=== PATIENT | female | born 1955 | race Caucasian/White ===

== ENCOUNTER 2016-09-02 08:08 | Outpatient (CLI) | payer OTHER | END 2016-09-02 08:09 | disposition home or self-care (01) | DX: Z12.31 Encounter for screening mammogram for malignant neoplasm of breast (principal) ==

== ENCOUNTER 2020-03-06 13:19 | Outpatient (CLI) | payer BC, MEDICARE, OTHER | END 2020-03-06 13:20 | disposition home or self-care (01) | LOC: NS 13:19 | PROVIDERS: ATTEND Physician Assistant Medical | DX: Z71.3 Dietary counseling and surveillance (principal); R73.9 Hyperglycemia, unspecified | CPT/HCPCS: 97802 ==

== ENCOUNTER 2020-03-20 12:53 | Outpatient (CLI) | payer BC, MEDICARE, OTHER | END 2020-03-20 12:54 | disposition home or self-care (01) | LOC: NS 12:53 | PROVIDERS: ATTEND Physician Assistant Medical | DX: Z71.3 Dietary counseling and surveillance (principal); R73.9 Hyperglycemia, unspecified | CPT/HCPCS: 97803 ==

== ENCOUNTER 2020-04-17 12:52 | Outpatient (CLI) | payer BC, MEDICARE, OTHER | END 2020-04-17 12:53 | disposition home or self-care (01) | LOC: NS 12:52 | PROVIDERS: ATTEND Physician Assistant Medical | DX: Z71.3 Dietary counseling and surveillance (principal); R73.9 Hyperglycemia, unspecified | CPT/HCPCS: 97803 ==

== ENCOUNTER 2020-05-26 09:12 | Outpatient (CLI) | payer BC, MEDICARE, OTHER ==
[2020-05-26 09:43] LABS: CALCIUM 9.2 mg/dL (8.5-10.3); CREATININE 0.7 mg/dL (0.4-1.0)
== END 2020-05-26 09:13 | disposition home or self-care (01) ==
LOC: LAB 09:12
PROVIDERS: ATTEND Physician Assistant Medical
DX: R73.9 Hyperglycemia, unspecified (principal)
CPT/HCPCS: 36415; 80048; 83036

== ENCOUNTER 2021-01-02 08:00 | Outpatient (CLI) | payer BC, MEDICARE, OTHER ==
[2021-01-02 12:01] LABS: ALBUMIN 4.2 g/dL (3.2-5.5); ALBUMIN/GLOBULIN RATIO 1.1 (1.0-2.2); ALKALINE PHOSPHATASE 92 IU/L (42-121); ALT ALANINE AMINOTRANSFERASE 23 IU/L (10-60); AST ASPARTATE AMINOTRANSFERASE 24 IU/L (10-42); BILIRUBIN,TOTAL 0.6 mg/dL (0.2-1.0); BUN - BLOOD UREA NITROGEN 18 mg/dL (6-20); CALCIUM 9.1 mg/dL (8.5-10.3); CARBON DIOXIDE - CO2 24 mmol/L (21-32); CHLORIDE 106 mmol/L (101-111); CHOL/HDL RATIO 3.6 (<4.4); CHOLESTEROL 215 mg/dL; CREATININE 0.8 mg/dL (0.4-1.0); GFR - MDRD 72 (>89); GLUCOSE 107 mg/dL (70-100); HDL CHOLESTEROL 59 mg/dL; LDL CHOLESTEROL,CALCULATED 140 mg/dL; LDL/HDL RATIO 2.4 (<4.4); POTASSIUM 4.7 mmol/L (3.5-5.0); SODIUM 138 mmol/L (135-145); TOTAL PROTEIN 8.1 g/dL (6.7-8.2); TRIGLYCERIDES 79 mg/dL; VLDL CHOLESTEROL 16 mg/dL
[2021-01-02 12:29] LABS: ESTIMATED AVERAGE GLUCOSE 117 mg/dL (70-100); HEMOGLOBIN A1c% 5.7 % (4.27-6.07)
== END 2021-01-02 23:59 | disposition home or self-care (01) ==
LOC: LAB.WCP 08:00
PROVIDERS: ATTEND Physician Assistant Medical
DX: R73.9 Hyperglycemia, unspecified (principal)
CPT/HCPCS: 36415; 80053; 80061; 83036; 83721

== ENCOUNTER 2021-04-05 09:12 | Outpatient (CLI) | payer BC, MEDICARE, OTHER ==
--- NOTE | 2021-04-05 11:25 | Ultrasound Report ---
PROCEDURE: Abdomen Limited INDICATIONS: RUQ ABDOMINAL PAIN TECHNIQUE: Real-time focused scanning was performed of the abdomen, with image documentation. COMPARISON: None. FINDINGS: The liver is increased in echogenicity. Anteriorly within the right hepatic lobe, there is a lobulate d hypoechoic heterogeneous mass with indistinct margins measuring approximately 11.8 x 6.4 x 10.1 cm. There is internal vascularity on color Doppler interrogation. Gallbladder demonstrates no stones, wall thickening, or pericholecystic fluid. No intra or extra hepatic biliary ductal dilatation. The common bile duct measures up to approximatel y 0.3 cm. There is an oval hypoechoic mass in the region of the pancreatic head and uncinate process. This sidra ures approximately 3.3 x 2.2 x 4.4 cm. There is internal vascularity on color Doppler interrogation. IMPRESSION: 1. Hyperechoic mass demonstrated within the region of the pancreatic head and uncinate process. Findi ng is suspicious for a pancreatic malignancy. No associated biliary ductal dilatation. 2. Lobulated large hypoechoic ill-defined mass involving the anterior right hepatic lobe. The finding is highly suspicious for malignancy, such as metastatic disease. Further evaluation of the hepatic and pancreatic masses may be obtained with a hepatic protocol CT or MRI. 3. No evidence of cholelithiasis or cholecystitis. Reviewed by: Lonnie De Leon MD on 04/05/2021 11:24 AM PDT Approved by: Lonnie De Leon MD on 04/05/2021 11:24 AM PDT Station ID: [id number]
== END 2021-04-05 09:13 | disposition home or self-care (01) ==
LOC: DI 09:12
PROVIDERS: ATTEND Physician Assistant Medical
DX: R10.11 Right upper quadrant pain (principal); R16.0 Hepatomegaly, not elsewhere classified; K86.89 Other specified diseases of pancreas

== ENCOUNTER 2021-04-10 11:10 | Outpatient (CLI) | payer BC, MEDICARE, OTHER ==
--- NOTE | 2021-04-13 10:19 | Mammography Report ---
BILATERAL DIGITAL SCREENING MAMMOGRAM 3D/2D: 04/10/2021 CLINICAL: Routine screening. Comparison is made to exams dated: 09/02/2016 mammogram, 05/06/2015 mammogram, and 10/22/2011 mammogra m - [facility]. There are scattered fibroglandular elements in both breasts. No significant masses, calcifications, or other findings are seen in either breast. There has been no significant interval change. IMPRESSION: NEGATIVE There is no mammographic evidence of malignancy. A 1 year screening mammogram is recommended. This exam was interpreted at Station ID: [id number]. NOTE: For mammograms, a report in lay terms will be sent to the patient. Approximately 15% of breast malignancies will not be visualized mammographically. In the management of a palpable breast mass, a negative mammogram must not discourage biopsy of a clinically suspicious lesion. Electronically Signed By: Maxx Gerardo M.D. aty/penrad:04/10/2021 16:54:14 ACR BI-RADS Category 1: Negative 3341F PARENCHYMAL PATTERN: (A) - The breast(s) demonstrate(s) scattered fibroglandular densities. BI-RADS CATEGORY: (1) - 1 RECOMMENDATION: (ANNUAL) - Recommend routine annual screening mammography. [id number] 1 year screening LATERALITY: (B)
== END 2021-04-10 11:11 | disposition home or self-care (01) ==
LOC: DI 11:10
DX: Z12.31 Encounter for screening mammogram for malignant neoplasm of breast (principal)

== ENCOUNTER 2021-04-17 07:00 | Outpatient (CLI) | payer BC, MEDICARE, OTHER ==
[2021-04-17] MEDS ORDERED: IOVERSOL 320 100 ML VIAL IVP ONE ×2 (07:32→08:53)
[2021-04-17 07:35] LABS: CREATININE 0.8 mg/dL (0.4-1.0)
--- NOTE | 2021-04-17 09:38 | CT Report ---
PROCEDURE: CHEST W INDICATIONS: MASS OF PANCREAS CONTRAST: IV CONTRAST: Optiray 320 ml: 100 PO CONTRAST: *NO PO CONTRAST TECHNIQUE: After the administration of intravenous contrast, 1 mm axial images were acquired from the pulmonary apices through the posterior costophrenic angles. Axial 5 mm soft tissue kernel reconstructions were performed as well as 8 mm axial MIP and coronal and sagittal 5 mm reformations. For radiation dose reduction, the following was used: automated exposure control, adjustment of mA and/or kV according to patient size. COMPARISON: CT abdomen and pelvis from the same date. FINDINGS: Image quality: Excellent. Lungs and pleura: No acute air space opacities. No pleural effusions or pneumothorax. Central and peripheral airways are patent and normal in caliber. Mediastinum: Heart size is normal. No pericardial effusion. No mediastinal or hilar adenopathy by size criteria. Thoracic aorta and central pulmonary arteries are normal in size. Esophagus is ruyd l in caliber. No hiatal hernia. Bones and chest wall: No suspicious bony lesions. No vertebral body compression fractures. No axil joe or supraclavicular adenopathy by size criteria. Thyroid is unremarkable as visualized.. Abdomen: Extensive liver metastatic disease. Multiple peritoneal implants adjacent to the liver. Cent rally necrotic uncinate process region pancreatic mass or pancreatic enlarged lymph nodes adjacent to the uncinate process, a portacaval lymph node. Implant immediately adjacent to the neck of the gallb ladder. IMPRESSION: 1. No evidence of metastatic disease in the chest. 2. Extensive metastatic disease in the liver. 3. Numerous peritoneal implants. 4. There is either and uncinate process mass or a large necrotic lymph node adjacent to the uncinate process of the pancreas, a portacaval lymph node. Comment: Please refer to a separate report for findings in the abdomen and pelvis. A CT of the abdome n and pelvis performed on the same date. CLINICAL RECOMMENDATION STATEMENTS: In patients <35 years with an ITN detected on CT, MRI, or extrathyroidal ultrasound, the Committee re commends further evaluation with dedicated thyroid ultrasound if the nodule is "e1 cm and has no susp icious imaging features, and if the patient has normal life expectancy. In patients "e35 years with an ITN detected on CT, MRI, or extrathyroidal ultrasound, the Committee r ecommends further evaluation with dedicated thyroid ultrasound if the nodule is "e1.5 cm and has no s uspicious imaging features, and if the patient has normal life expectancy. (ACR, 2014) Reviewed by: Harish Joe MD on 04/17/2021 9:37 AM PDT Approved by: Harish Joe MD on 04/17/2021 9:37 AM PDT Station ID: [id number]
--- NOTE | 2021-04-17 10:15 | CT Report ---
PROCEDURE: ABDOMEN/PELVIS W/WO INDICATIONS: MASS OF PANCREAS CONTRAST: IV CONTRAST: Optiray 320 ml: 100 PO CONTRAST: *NO PO CONTRAST TECHNIQUE: After the administration of oral contrast, 5 mm thick sections acquired from the diaphrag ms to the iliac crests. After the administration of intravenous contrast, 5 mm thick sections acquir ed from the diaphragms to the symphysis. 5 mm thick coronal and sagittal reformats were acquired. F or radiation dose reduction, the following was used: automated exposure control, adjustment of mA an d/or kV according to patient size. COMPARISON: None. FINDINGS: Image quality: Excellent. ABDOMEN: Lung bases: Lung bases are clear. Heart size is normal. Solid organs: Liver: Extensive metastatic disease. Index lesion as follows: Predominantly segment 5, right lobe, confluent infiltrative low-density mass measuring approximately 7.1 x 5.5 x 6.8 cm. Reference images 39/6 and 33/3. Spleen is unremarkable. Gallbladder appears to be unremarkable. There appeared to be malignant implan ts immediately adjacent to the gallbladder. Biliary system is non-dilated. Pancreas: There is either and uncinate process pancreas mass or an enlarged necrotic portacaval lymph node immediately adjacent to the uncinate process. On image 43/3 it measures 4.6 x 4.1 cm. No adrenal nodules. Both kidneys are normal in size. No hydronephrosis or nephrolithiasis. Bowel and peritoneum: Stomach, small and large bowel loops are normal in caliber and wall thickness. No free fluid or air. Numerous peritoneal implants are present. Many of these are close to the viola er. These are hypervascular metastatic lesions. 2 of the implants are close to the gallbladder. A rep resentative image demonstrating peritoneal implants shows 5/implants adjacent to the right lobe of th e liver on image 49/3. Nodes and vessels: No retroperitoneal or mesenteric adenopathy by size criter ia. Aorta and inferior vena are normal in caliber. Miscellaneous: No ventral hernias. PELVIS: Genitourinary: Bladder wall thickness is normal. Miscellaneous: No inguinal hernias or adenopathy. Uterus is surgically absent. Bones: No suspicious bony lesions. No vertebral body compression fractures. IMPRESSION: 1. There is extensive hepatic metastatic disease. 2. There is either an intrinsic uncinate process pancreatic mass or a necrotic portacaval lymph node adjacent to the uncinate process of the pancreas. 3. There are numerous small peritoneal implants. Comment: It should be relatively easy to perform an image guided biopsy of the liver for tissue diagn osis. Reviewed by: Harish Joe MD on 04/17/2021 10:13 AM PDT Approved by: Harish Joe MD on 04/17/2021 10:13 AM PDT Station ID: [id number]
== END 2021-04-17 07:01 | disposition home or self-care (01) ==
LOC: LAB 07:00
PROVIDERS: ATTEND Physician Assistant Medical
DX: K86.89 Other specified diseases of pancreas (principal); C78.7 Secondary malignant neoplasm of liver and intrahepatic bile duct; R93.5 Abnormal findings on diagnostic imaging of other abdominal regions, including retroperitoneum
CPT/HCPCS: 36415; 71260; 74178; 82565; Q9967

== ENCOUNTER 2021-04-24 07:46 | Outpatient (CLI) | payer BC, MEDICARE, OTHER ==
[2021-04-24] MEDS ORDERED: BUFFERED LIDOCAINE 10 ML SYRINGE ONE (08:30)
[2021-04-24 08:34] LABS: BASOPHILS # (AUTO) 0.1 10^3/uL (0.0-0.1); BASOPHILS % (AUTO) 0.8 %; EOSINOPHILS # (AUTO) 0.2 10^3/uL (0.0-0.7); EOSINOPHILS % (AUTO) 2.4 %; HCT - HEMATOCRIT 40.8 % (37.0-47.0); HGB - HEMOGLOBIN 13.4 g/dL (12.0-16.0); LYMPHOCYTES # (AUTO) 2.7 10^3/uL (1.5-3.5); LYMPHOCYTES % (AUTO) 35.9 %; MEAN CORPUSCULAR HEMOGLOBIN 31.2 pg (27.0-31.0); MEAN CORPUSCULAR HGB CONC 32.8 g/dL (32.0-36.0); MEAN CORPUSCULAR VOLUME 95.1 fL (81.0-99.0); MEAN PLATELET VOLUME 9.8 fL (7.9-10.8); MONOCYTES # (AUTO) 0.5 10^3/uL (0.0-1.0); NEUTROPHILS # (AUTO) 4.1 10^3/uL (1.5-6.6); NEUTROPHILS % (AUTO) 54.8 %; PLT - PLATELET COUNT 320 10^3/uL (130-450); RED BLOOD COUNT 4.29 10^6/uL (4.20-5.40); RED CELL DISTRIBUTION WIDTH 12.4 % (12.0-15.0); WHITE BLOOD COUNT 7.5 x10^3/uL (4.8-10.8)
[2021-04-24 08:40] LABS: INR 1.1 (0.8-1.2); PT - PROTHROMBIN TIME 12.2 secs (9.9-12.6)
[2021-04-24] MEDS: LACTATED RINGERS 1,000 ML IV ONE ×2 (08:43→10:03)
[2021-04-24 08:47] LABS: PARTIAL THROMBOPLASTIN TIME 28.9 secs (24.9-33.3)
[2021-04-24] MEDS ORDERED: fentaNYL 100 MCG/2 ML VIAL ONE (09:05)
[2021-04-24] MEDS ORDERED: MIDAZOLAM 2 MG/2 ML VIAL ONE (09:06)
--- NOTE | 2021-04-24 10:33 | CT Report ---
PROCEDURE: LIVER BX PERC Sedation analgesia for 30 minutes. INDICATIONS: MASS OF PANCREAS TECHNIQUE: The indications, alternatives, benefits, risks, and possible complications of the procedure were comm unicated to the patient. Informed written consent from the patient was obtained and placed in the art. Continuous EKG and hemodynamic monitoring was started by trained personnel. For radiation dose reduction, the following was used: automated exposure control, adjustment of mA and/or kV according to patient size. The patient was brought to the CT suite and reading assistant spiral CT imaging was performed with localization g rid. The appropriate site for percutaneous access to the biopsy target was marked, was prepped and d raped sterilely, and was infused with local anaesthesia. Under CT guidance, a core biopsy trocar and needle set was advanced to the biopsy target, and specimen(s) were obtained. The trocar and needle were then removed, and the patient was sent for post-procedure monitoring. COMPARISON: None. FINDINGS: Biopsy site: Anterior segment right hepatic lobe lesion. Needle: 18 gauge biopsy needle with introducer trocar. Number of passes: 3 Medications: 1% lidocaine for local anaesthesia. IV Fentanyl and Versed for conscious sedation for 30 minutes (see nursing record). Complications: None. IMPRESSION: Successful CT-guided biopsy of liver lesion. Reviewed by: Joe Caal MD on 04/24/2021 10:32 AM PDT Approved by: Joe Caal MD on 04/24/2021 10:32 AM PDT Station ID: [id number]
[2021-04-24 14:03] VITALS: BP 145/75
== END 2021-04-24 07:47 | disposition home or self-care (01) ==
LOC: DI 07:46
PROVIDERS: ATTEND Physician Assistant Medical
DX: K86.89 Other specified diseases of pancreas (principal); C78.7 Secondary malignant neoplasm of liver and intrahepatic bile duct
CPT/HCPCS: 36415; 47000; 77012; 85025; 85610; 85730; J7120

== ENCOUNTER 2021-05-11 07:53 | Day surgery (SDC) | payer BC, MEDICARE, OTHER ==
[~2021-05-11 07:53] MED LIST: MIDAZOLAM 2 MG/2 ML VIAL ONE; PROPOFOL 200 MG/20 ML VIAL IVP ONE; fentaNYL 100 MCG/2 ML VIAL ONE
[2021-05-11] MEDS ORDERED: CEFAZOLIN SODIUM IN 0.9 % NACL 2 GM/100 ML BAG IV ONE (08:27)
[2021-05-11] MEDS ORDERED: ePHEDrine 50 MG/ML VIAL IVP ONE (08:33)
[2021-05-11] MEDS ORDERED: GLYCOPYRROLATE 1 MG/5 ML VIAL ONE (08:35)
--- NOTE | 2021-05-11 08:58 | ANESTHESIA ---
Pre-Anesthesia VS, & Labs - Diagnosis pancreatic cancer - Procedure Portacath placement Vital Signs: Temp Pulse Resp BP Pulse Ox 36.2 C L 55 L 18 184/98 H 95 05/11/21 08:10 05/11/21 08:10 05/11/21 08:10 05/11/21 08:10 05/11/21 08:10 Height: 5 ft 5 in Weight (kg): 93.9 kg Body Mass Index: 34.4 BMI Classification: Obese - NPO >8 hours - Is Patient ?: No - Lab Results Lab results reviewed: Yes Home Medications and Allergies Aspirin Chewable [St Heath Aspirin] 81 mg PO DAILY 02/20/20 Cholecalciferol (Vitamin D3) [Vitamin D3] 6,000 unit PO DAILY 02/20/20 Losartan [Cozaar] 50 mg PO BID 02/20/20 Metoprolol Tartrate [Lopressor] 100 mg PO BID 02/20/20 Red Yeast Rice 1,200 mg PO DAILY 02/20/20 Allergies/Adverse Reactions: Allergies Allergy/AdvReac Type Severity Reaction Status Date / Time No Known Drug Allergies Allergy Verified 04/23/21 11:27 Anes History & Medical History - Anesthetic History Anesthesia Complications: reports: No previous complications Family history of Anesthesia Complications: Denies Family history of Malignant Hyperthermia: Denies - Medical History Cardiovascular: reports: Hypertension Smoking Status: Never smoker Other Past Medical History: pancreatic cancer - Surgical History Gynecologic: reports: Hysterectomy Exam General: Alert, Oriented x3, Cooperative, No acute distress Dental: WNL Mouth Openin Fingerbreadth Neck Mobility: Normal Mallampati classification: II Respiratory: Lungs clear, Normal breath sounds, No respiratory distress, No accessory muscle use Cardiovascular: Regular rate, Normal S1, Normal S2, No murmurs Plan Anesthesia Type: MAC Consent for Procedure(s) Verified and Reviewed: Yes Code Status: Attempt Resuscitation ASA classification: 3-Severe systemic disease Is this case an emergency?: No
[2021-05-11] MEDS ORDERED: METOCLOPRAMIDE 10 MG/2 ML VIAL IVP PRN (09:01)
[2021-05-11] MEDS ORDERED: NALOXONE 0.4 MG/ML VIAL IVP PRN (09:01)
[2021-05-11] MEDS ORDERED: ATROPINE ABBOJECT 1 MG/10 ML SYRINGE IVP PRN (09:01)
[2021-05-11] MEDS ORDERED: ePHEDrine 50 MG/ML VIAL IVP PRN (09:01)
[2021-05-11] MEDS ORDERED: ONDANSETRON 4 MG/2 ML VIAL IVP PRN (09:01)
[2021-05-11] MEDS ORDERED: MORPHINE 2 MG/ML CARPUJECT IVP PRN (09:01)
[2021-05-11] MEDS ORDERED: fentaNYL 100 MCG/2 ML VIAL IVP PRN (09:01)
[2021-05-11] MEDS ORDERED: HYDROmorphone 0.5 MG/0.5 ML SYRINGE IVP PRN (09:01)
[2021-05-11] MEDS ORDERED: LACTATED RINGERS 1,000 ML IV SCH (10:00)
[2021-05-11] MEDS ORDERED: LIDOCAINE 2%-EPI 1:100000 20 ML MDV ONE (10:05)
[2021-05-11] MEDS ORDERED: BUPIVACAINE 0.25% PF 30 ML VIAL ONE (10:05)
[2021-05-11] MEDS ORDERED: PROPOFOL 200 MG/20 ML VIAL IVP ONE (10:19)
[2021-05-11] MEDS ORDERED: fentaNYL 100 MCG/2 ML VIAL ONE (10:20)
[2021-05-11] MEDS ORDERED: MIDAZOLAM 2 MG/2 ML VIAL ONE (10:20)
[2021-05-11] MEDS ORDERED: SEVOFLURANE 250 ML LIQUID INH ONE (10:23)
[2021-05-11] MEDS ORDERED: LIDOCAINE 1%-EPI 1:100000 20 ML MDV SUBQ ONE ×2 (10:56)
[2021-05-11] MEDS ORDERED: BUPIVACAINE 0.5% PF 30 ML VIAL SUBQ ONE ×3 (10:57)
--- NOTE | 2021-05-11 11:19 | OPERATIVE REPORT ---
Operative Report - General Procedure Date: 05/11/21 Planned Procedure: Left subclavian Power Port Pre-Op Diagnosis: Metastatic Pancreatic Cancer Procedure Performed: Left subclavian Power Port Post Op Diagnosis: Metastatic Pancreatic Cancer - Procedure Note Primary Surgeon: Randolph Anesthesia Provider: CATRACHITA Thapa Pathology: None Estimated Blood Loss (mL): 2 Indications: Facilitation of Chemotherapy Findings: Port in good position Complications: None apparent - Other Other Information/Narrative: After obtaining informed consent, the patient is brought to the operating room and placed in supine position on the operating table. Following successful induction of sedation with monitored anesthesia care and appropriate padding of all bony prominences, the left chest and neck were prepped and draped in the standard surgical fashion. A timeout was held per scope protocol. All elements of the surgical safety checklist were followed before, during, and after the procedure. Following infiltration with local anesthetic to create a field block, the left subclavian vein was accessed in the deltopectoral groove. The J-wire was gently placed into the vein. Fluoroscopy was used to confirm the position of the wire and in the subclavian vein. We anesthetized the existing healed scar in the area around it for placement of the port itself. An incision was created here and carried down through the skin and subcutaneous tissue. A pocket was created with blunt dissection. The port tubing was attached to the tunneling device and passed from the access site of the vein into the pocket. It was trimmed to an appropriate length and the port attached. The port was sewn into place in the pocket. The dilator and introducer were then passed over the J-wire that was in the subclavian vein. The J-wire and dilator were removed leaving only the introducer. The tubing was then passed through the introducer and the introducer cracked and removed per ratoprinter's directions. The port was then checked for function and flushed and [place] easily. Additional local anesthetic was applied to the chest wall. The port pocket was closed with interrupted Vicryl sutures and Monocryl stitches were placed in both skin incision sites. All sponge, needle, and instrument counts were correct at the conclusion of the case. Chest x-ray in the postanesthesia care unit revealed the port in good position in the superior vena cava without evidence of pneumothorax.
[2021-05-11] MEDS ORDERED: LACTATED RINGERS 1,000 ML IV ONE (11:24)
--- NOTE | 2021-05-11 11:51 | XRAY Report ---
PROCEDURE: Chest for Line Placement INDICATIONS: Left subclavian port TECHNIQUE: One view of the chest was acquired. COMPARISON: None. FINDINGS: SUPPORT DEVICES: Interval placement of a CT injectable left subclavian nas catheter with tip projec ting over the cavoatrial region. LUNGS/PLEURA: No focal consolidation, pleural effusion or space-occupying pneumothorax. MEDIASTINUM: The cardiomediastinal silhouette is within normal limits. BONES/SOFT TISSUES: No acute abnormality. IMPRESSION: 1.No acute cardiopulmonary abnormality. Reviewed by: Jorgito Hernandez MD on 05/11/2021 11:50 AM PDT Approved by: Jorgito Hernandez MD on 05/11/2021 11:50 AM PDT Station ID: [id number]
[2021-05-11 12:03] VITALS: BP 138/73
--- NOTE | 2021-05-11 15:04 | ANESTHESIA POST OP EVALUATION ---
Anesthesia Post Eval - Post Anesthesia Eval Vitals: Last Vital Signs Temp 36.4 C L 05/11/21 11:56 Pulse 53 L 05/11/21 11:56 Resp 12 05/11/21 11:56 BP 138/73 H 05/11/21 11:56 Pulse Ox 98 05/11/21 11:56 CV Function Including HR & BP: Stable Pain Control: Satisfactory Nausea & Vomiting: Negative Mental Status: Baseline Respiratory Status: Airway Patent Hydration Status: Satisfactory Anesthesia Complications: None
== END 2021-05-11 07:54 | disposition home or self-care (01) ==
LOC: SDS 07:53
PROVIDERS: ATTEND Surgery
DX: C25.9 Malignant neoplasm of pancreas, unspecified (principal); C78.7 Secondary malignant neoplasm of liver and intrahepatic bile duct; C78.6 Secondary malignant neoplasm of retroperitoneum and peritoneum; E66.9 Obesity, unspecified; Z68.34 Body mass index [BMI] 34.0-34.9, adult; Z20.822 Contact with and (suspected) exposure to COVID-19
CPT/HCPCS: 36561; 71045; 87635; C1788; J0690; J3490; J7120

== ENCOUNTER 2021-06-25 16:54 | Outpatient (CLI) | payer MEDICARE, OTHER ==
--- NOTE | 2021-06-25 18:53 | Ultrasound Report ---
PROCEDURE: Duplex Ext Veins Left INDICATIONS: LEFT LEG PAIN TECHNIQUE: Real-time imaging, as well as color and pulse Doppler interrogation, were performed of the lower extr emity deep veins from the inguinal ligament to the popliteal fossa. COMPARISON: None. FINDINGS: Nonocclusive thrombus in the common femoral vein, upper and mid profunda vein, and popliteal veins. No thrombus identified in the superficial femoral vein. No thrombus is identified in the calf veins. There is extensive occlusive thrombus in the greater saphenous vein from the groin to the mid calf. IMPRESSION: Positive for DVT. Nonocclusive thrombus in the CFV, profunda, and popliteal veins. Occlusive superficial thrombus in the GSV. Reviewed by: Remy Morin MD on 06/25/2021 6:52 PM PST Approved by: Remy Morin MD on 06/25/2021 6:52 PM [facility] Station ID: [id number]
== END 2021-06-25 16:55 | disposition home or self-care (01) ==
LOC: DI 16:54
PROVIDERS: ATTEND Internal Medicine Hematology & Oncology
DX: M79.605 Pain in left leg (principal); I82.412 Acute embolism and thrombosis of left femoral vein; I82.432 Acute embolism and thrombosis of left popliteal vein; I82.492 Acute embolism and thrombosis of other specified deep vein of left lower extremity; I82.812 Embolism and thrombosis of superficial veins of left lower extremity; C25.9 Malignant neoplasm of pancreas, unspecified; C78.7 Secondary malignant neoplasm of liver and intrahepatic bile duct; C78.6 Secondary malignant neoplasm of retroperitoneum and peritoneum

== ENCOUNTER 2021-06-25 18:35 | Emergency (ER) | payer MEDICARE, OTHER ==
[2021-06-25 18:46] VITALS: BP 161/88
[2021-06-25] MEDS ORDERED: APIXABAN 5 MG TABLET PO STA (20:29)
--- NOTE | 2021-06-25 20:31 | ED Physician Documentation ---
History of Present Illness - Stated complaint Stated Complaint: LEFT LEG PX - Chief complaint Chief Complaint: Ext Problem - History obtained from History obtained from: Patient - History of Present Illness Timing: How many weeks ago (2) Pain level max: 2 Pain level now: 1 - Additonal information Additional information: Patient is a 66-year-old female with a history of pancreatic cancer who had an outpatient ultrasound today for left lower extremity pain and swelling x2 weeks. Found to have a DVT and sent here to be placed on anticoagulants. No chest pain. No shortness of breath. Review of Systems Constitutional: denies: Fever, Chills Nose: denies: Rhinorrhea / runny nose, Congestion GI: denies: Vomiting Skin: denies: Rash Musculoskeletal: denies: Neck pain, Back pain Neurologic: denies: Headache PD PAST MEDICAL HISTORY - Past Medical History Past Medical History: Yes Cardiovascular: Hypertension Respiratory: None Neuro: None Endocrine/Autoimmune: None GI: Other REGISTERED ART THERAPIST: None : None HEENT: None Psych: None Musculoskeletal: None Derm: None Other Past Medical History: Pancreatic ca with liver mets - Past Surgical History Past Surgical History: Yes /REGISTERED ART THERAPIST: Hysterectomy - Present Medications Home Medications: Ambulatory Orders Medication Instructions Recorded Confirmed Aspirin Chewable [St Heath 81 mg PO DAILY 02/20/20 05/18/21 Aspirin] Cholecalciferol (Vitamin D3) 6,000 unit PO DAILY 02/20/20 05/18/21 [Vitamin D3] Losartan [Cozaar] 50 mg PO BID 02/20/20 05/18/21 Metoprolol Tartrate [Lopressor] 100 mg PO BID 02/20/20 05/18/21 Red Yeast Rice 1,200 mg PO DAILY 02/20/20 05/18/21 Lidocaine/Prilocain 2.5% Cream 1 each TP BID PRN #1 tu 05/11/21 05/18/21 [Emla 2.5% Cream] oxyCODONE [Roxicodone] 5 mg PO Q4-6H PRN #20 tablet 05/11/21 05/18/21 OLANZapine [Zyprexa] 5 mg PO UD #16 tablet 05/18/21 Ondansetron HCl [Zofran] 4 mg PO Q6HR PRN #30 tab 05/18/21 Apixaban [Eliquis] 5 mg PO BID #74 tablet 06/25/21 - Allergies Allergies/Adverse Reactions: Allergies Allergy/AdvReac Type Severity Reaction Status Date / Time No Known Drug Allergies Allergy Verified 04/23/21 11:27 - Social History Does the pt smoke?: No Smoking Status: Never smoker Does the pt drink ETOH?: No Does the pt have substance abuse?: No PD ED PE NORMAL - Vitals Vital signs reviewed: Yes - General General: Alert and oriented X 3, No acute distress - HEENT HEENT: Moist mucous membranes - Neck Neck: Supple, no meningeal sign - Cardiac Cardiac: RRR - Respiratory Respiratory: No respiratory distress, Clear bilaterally - Abdomen Abdomen: Soft, Non tender, Non distended - Derm Derm: Warm and dry - Extremities Extremities: Other (mild swelling LLE, no calf tenderness. ) - Neuro Neuro: Alert and oriented X 3 Results - Vitals Vitals: Vital Signs - 24 hr 06/25/21 06/25/21 18:40 20:36 Temperature 36.5 C Heart Rate 74 Respiratory 18 Rate Blood Pressure 161/88 H O2 Saturation 96 Oxygen O2 Source Room air PD MEDICAL DECISION MAKING - ED course Complexity details: considered differential, d/w patient ED course: Reviewed the patient's ultrasound that was positive for DVT. Discussed risks and benefits of anticoagulation. She has no risk factors for bleeding. Denies any current GI bleeding. No history of recent surgery. No history of intracranial hemorrhage. No history of recent stroke. Counseled regarding the need to be seen emergently if trauma occurs to the abdomen or head. Patient has elected to go with Eliquis. She does not want to do warfarin and Lovenox, I think this is reasonable. We will start her on the Eliquis and have her follow-up with her doctor. Patient counseled regarding signs and symptoms for which I believe and urgent re-evaluation would be necessary. Patient with good understanding of and agreement to plan and is comfortable going home at this time This document was made in part using voice recognition software. While efforts are made to proofread this document, sound alike and grammatical errors may occur. Departure - Departure Disposition: 01 Home, Self Care Clinical Impression: Deep vein thrombosis Qualifiers: DVT location: lower extremity Affected thrombotic vein of extremity: unspecified vein of extremity Chronicity: acute Laterality: left Qualified Code(s): I82.402 - Acute embolism and thrombosis of unspecified deep veins of left lower extremity Condition: Good Instructions: ED DVT Follow-Up: Amelie Akers PA-C [Primary Care Provider] - Within 1 week Prescriptions: Apixaban [Eliquis] 5 mg PO BID #74 tablet Comments: Prescription was sent to [facility] in [place]. Please follow-up with your doctor for further care. Return if you worsen. Return especially if you notice any dark stools, blood in your stools. If you have trauma especially to your head area, you need to be evaluated immediately. Discharge Date/Time: 06/25/21 20:49
== END 2021-06-25 20:49 | disposition home or self-care (01) ==
LOC: ED 18:35
DX: I82.402 Acute embolism and thrombosis of unspecified deep veins of left lower extremity (principal); I10 Essential (primary) hypertension; M79.605 Pain in left leg; I82.412 Acute embolism and thrombosis of left femoral vein; I82.432 Acute embolism and thrombosis of left popliteal vein; I82.492 Acute embolism and thrombosis of other specified deep vein of left lower extremity; I82.812 Embolism and thrombosis of superficial veins of left lower extremity; C25.9 Malignant neoplasm of pancreas, unspecified; C78.7 Secondary malignant neoplasm of liver and intrahepatic bile duct; C78.6 Secondary malignant neoplasm of retroperitoneum and peritoneum
CPT/HCPCS: 36415; 93971; 99282; 99284; A9270

== ENCOUNTER 2021-09-10 13:30 | Outpatient (CLI) | payer MEDICARE, OTHER ==
--- NOTE | 2021-09-10 18:22 | CONSULTATION NOTE ---
Palliative Care Consultation - Referral Referring Provider: Dr. Inga Adame Time of Visit: 4568-9969 Referral setting: Home Referral Reason: Pancreatic Cancer/ACP - Information Sources Records reviewed: Previous records reviewed History/Review of Systems obtained from: Patient, Family (spouse, Ted) Exam limitations: No limitations - History of Present Illness Brief History of Present Illness: This is a verna 66-year-old female who was seen and evaluated in her home for initial palliative care consultation due to metastatic pancreatic adenocarcinoma with liver mets with her spouse, Ted present Provider wore N95 mask. Patient relays on her history that in July 2020 she developed a pain to her right upper quadrant that lasted several days and that then went away and she avoided fried chicken. The pain returned in February 2021. She went and was seen by her primary care provider and an ultrasound was obtained that demonstrated some thickening and a CT scan was then ordered of the abdomen and pelvis that demonstrated a "right hepatic lobe segment 5 infiltrative mass measuring 7.1 x 5.5 x 6.8 cm. From there the patient felt like things happened very quickly she then had a biopsy obtained confirming metastatic pancreatic adenocarcinoma in April 2021. She began mFOLFOX6 on 05/19/2021. Overall, the patient perceives that she has handled chemotherapy very well. There are times where she will have fatigue but she is able to keep moving. She feels that she has slowed down but she still able to do tasks and things that she enjoys. She does have some neuropathy with her hands that tingle when she touches cold objects with her fingertips. Therefore, she avoids cold items or has gloves in place do not change anything directly. She will have some of the same sensation to her feet that comes and goes. She also reports of fatigue with the last cycle of her chemotherapy but otherwise feels that she gets rest. She does report an intermittent right upper quadrant pain that will last a minute or so and then keily. She has not needed to take any [id number] pain medication nor does she perceive that she needs anything stronger than [id number] pain medication at this time. She will wake up frequently during the night but this has been ongoing for years. She denies any increased anxiety. Since initiating chemotherapy she does find all foods take taste to salty. She has had a gradual weight loss since her diagnosis. Patient is seen well groomed in her living room with no evidence of acute distress. 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 Support System: Patient and spouse have been for 47 years. They have 3 daughters. 2 daughters live in [place] and 1 daughter lives in [place] with her family. The patient and her spouse relocated to [facility] in August 1988. Spouse, Ted is retired from the [employer]. Both patient and spouse have retired. 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 The patient is an avid bad credit collector of many things and has her collections on display; angels, miniature shoes, beanie babies, books, classic Barbies, blue birds, intricate baskets. These items bring the patient much fransisco. Family History - Family History Family History: Mother: , Father: Alive and Well Family History Comment/Other: Mother at age 48 in a diabetic coma. Father is alive at age 91 and resides in [place]. Medications/Allergies - Medications Home Medications: Ambulatory Orders Medication Instructions Recorded Confirmed Cholecalciferol (Vitamin D3) 6,000 unit PO DAILY 02/20/20 09/01/21 [Vitamin D3] Losartan [Cozaar] 50 mg PO BID 02/20/20 09/01/21 Metoprolol Tartrate [Lopressor] 100 mg PO BID 02/20/20 09/01/21 Red Yeast Rice 600 mg PO BID 02/20/20 09/01/21 Lidocaine/Prilocain 2.5% Cream 1 each TP BID PRN #1 tu 05/11/21 09/01/21 [Emla 2.5% Cream] oxyCODONE [Roxicodone] 5 mg PO Q4-6H PRN #20 tablet 05/11/21 09/01/21 OLANZapine [Zyprexa] 5 mg PO UD #16 tablet 05/18/21 09/01/21 ondansetron HCL [Zofran] 4 mg PO Q6HR PRN #30 tab 05/18/21 09/01/21 Apixaban [Eliquis] 5 mg PO BID #74 tablet 06/25/21 09/01/21 Aspirin [Vazalore] 1 tab PO DAILY 09/14/21 09/14/21 B Complex 1 tab PO DAILY 09/14/21 Biotin 1,000 mcg PO BID 09/14/21 09/14/21 Calcium Carbonate 1 tab PO DAILY 09/14/21 09/14/21 Lysine [l-Lysine] 500 mg .3X PER WEEK 09/14/21 09/14/21 Magnesium 1 tab PO DAILY 09/14/21 09/14/21 Multivitamin 2 tab PO DAILY 09/14/21 09/14/21 Pancreatic Enzymes 2 units PO .WITH MEALS 09/14/21 Potassium 99mg 1 tab PO DAILY 09/14/21 Vitamin B12 2,500 mcg PO DAILY 09/14/21 Vitamin C 282 1 tab PO TID 09/14/21 - Allergies Allergies/Adverse Reactions: Allergies Allergy/AdvReac Type Severity Reaction Status Date / Time No Known Drug Allergies Allergy Verified 04/23/21 11:27 Review of Systems - Constitutional Constitutional: reports: Fatigue (after last cycle of chemotherapy), Weight loss (22lb weight loss). denies: Fever - Eyes Eyes: reports: Corrective lenses. denies: Irritation - Ears, Nose & Throat Ears, Nose & Throat: denies: Hearing loss, Hearing aids - Cardiovascular Cardiovascular: denies: Chest pain, Edema - Respiratory Respiratory: denies: Cough - Gastrointestinal Gastrointestinal: reports: Abdominal pain (intermittent RUQ, see HPI), Constipation (controlled with Benefiber (brand only)), Other (Fair appetite). denies: Diarrhea, Vomiting - Musculoskeletal Musculoskeletal: denies: Assistive devices, Transfer issues - Neurological Neurological: denies: Headache - Psychiatric Psychiatric: denies: Depression - Endocrine Endocrine: denies: Diabetes type 2 - All Other Systems All Other Systems: reports: Reviewed and negative Physical Exam - Vital Signs Temperature: 36.6 C Pulse Rate: 57 O2 Saturation: 97 (on RA) Blood Pressure: 134/79 - Physical Exam General Appearance: positive: No acute distress, Alert Eyes Bilateral: positive: Normal inspection, Other (+corrective lenses) ENT: positive: No signs of dehydration Neck: positive: Trachea midline Cardiovascular: positive: Regular rate & rhythm Respiratory: positive: No respiratory distress, Breath sounds nml Abdomen: positive: Non-tender, Soft, Nml bowel sounds. negative: Guarding Skin: positive: No symptoms Extremities: positive: Full ROM, Other (steady gait without an assistive device) Neurologic/Psychiatric: positive: Oriented x3, Mood/affect nml. negative: Weakness Palliative Care - POLST Patient has POLST: No Pain: No pain (intermittent RUQ, no pain presently) Tiredness/Fatigue: Mild (1-3) Drowsiness/Sedation: Mild (1-3) Nausea: Mild (1-3) Anorexia: Mild (1-3) Dyspnea: None Feelings of wellbeing/Perceived Quality of Life: Excellent Sleep: Variable sleep pattern (see HPI) Constipation: Managed (with Benefiber) Performance Status: Ambulatory without assist assistive device. No history of falls. Able to perform all IADLs and ADLs. Her only symptom burden that she has appreciated is that she has to slow down. - Palliative Care Discussion: Overall, she has minimal symptom burden and since the time of her cancer diagnosis it has been around when. She has the support of a local group of friends that she sees regularly. She also finds that her simi is centering and grounding for her. Her spouse expresses that he wishes to provide as much support as possible. He relays that he "did everything wrong" in regards to his health and wellbeing and yet here his spouse has a diagnosis of pancreatic cancer. The patient remains quite close to her daughters and has support from them as well. 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 Palliative care will continue to provide support for care coordination, anticipatory guidance and advance care planning. Recommendations/Counseling Done: 1. 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 P atient avoids cold contact. No need for introduction of gabapentin at her pre- Gage given minimal symptom burden. Continue to monitor. 2. Constipation. Patient responds well to brand only Benefiber. And encourage oral hydration and small frequent meals. 3. Simi. Patient has a strong underlying simi that provides her support. Introduced the role of palliative care qa tech is this is something she would find beneficial to request in the future. 4. Metastatic pancreatic cancer. Followed by oncology. Diagnosed April 2021. Continues with mFOLFOX6. 5.Advance care planning. Patient with metastatic disease. To continue to build rapport and tease out goals of care moving forward. Support to both patient and spouse. Supportive and empathetic listening provided today. Total time spent 65 with greater than 50% of time spent in counseling family and patient regarding palliative philosophy as well as care coordination, review of pain and symptom management and anticipatory guidance. Disclaimer: The chart note was formulated using voice recognition technology and unfortunately sound alike errors may occur.
== END 2021-09-10 13:31 | disposition home or self-care (01) ==
LOC: PC 13:30
PROVIDERS: ATTEND Nurse Practitioner Family
DX: Z51.5 Encounter for palliative care (principal); R53.83 Other fatigue; G62.0 Drug-induced polyneuropathy; T45.1X5A Adverse effect of antineoplastic and immunosuppressive drugs, initial encounter; R10.11 Right upper quadrant pain; K59.00 Constipation, unspecified; R63.4 Abnormal weight loss; C78.7 Secondary malignant neoplasm of liver and intrahepatic bile duct; C25.9 Malignant neoplasm of pancreas, unspecified
CPT/HCPCS: 99344

== ENCOUNTER 2021-11-17 08:52 | Outpatient (CLI) | payer MEDICARE, OTHER ==
--- NOTE | 2021-11-17 12:32 | CONSULTATION NOTE ---
Palliative Care Follow Up - Referral Referring Provider: Dr. Inga Adame Time of Visit: [id number] Referral setting: [facility] Referral Reason: Pancreatic Ca/Neuropathy - Information Sources Records reviewed: Previous records reviewed History/Review of Systems obtained from: Patient, Family (spouse, Ted) Exam limitations: No limitations - History of Present Illness Update Brief HPI Update: This is a verna 66-year-old female who was seen in follow-up today at [facility] due to metastatic pancreatic adenocarcinoma with liver mets And neuropathy due to chemotherapy with her spouse, Ted present. Patient developed right upper quadrant pain that lasted several days in July 2020 that then went away and then returned in February 2021. She had a CT scan and ultrasound that was obtained demonstrating a "right hepatic lobe segment 5 infiltrative mass measuring 7.1 x 5.5-6.8 cm." From there things progressed with her having a biopsy obtained confirming metastatic pancreatic adenocarcinoma in April 2021. She began mFOLFOX 6 on 05/19/2021. She last had a restaging CT of abdomen and pelvis on 10/20 that demonstrated stable disease in her liver, pancreas and peritoneum. This was something that she was pleased to hear however, was hoping to be notified of reduction in disease free of chemotherapy. She received one dose of pegfilgrastim injection And reports the day after she "could not leave her couch." In the timeframe after this injection she lost approximately 8 pounds. This is not something that she wishes to move forward with in the future after weighing benefits versus burdens related to her quality of life. She is beginning to feel improved with her energy level over the last week since this injection. She is now started implementing Ensure at least once daily and will dilute it with some low-fat milk. She continues to consume meals but does not find this overly pleasurable due to loss of taste but recognizes the importance and then will move forward with this. She is taking up taking a nap in the afternoon and this allows her to have better energy in the later afternoon and evening hours and is giving herself some tutu regarding this. She reports some dullness to her fingertips that sometimes can be difficult when she is crocheting. She also have a tingling sensation from her mid foot down to her toes. She does not ambulate in the home barefoot. Overall reporting mild discomfort related to neuropathy. Past Medical History: Past medical history of hypertension, pancreatic cancer, Hysterectomy, left lower extremity DVT on Eliquis since 06/2021. Social History - Living Situation Living arrangement: At home Living Situation: With spouse/s.o. Support System: Patient and spouse have been for 47 years. They have 3 daughters. 2 daughters live in [place] and 1 daughter lives in [place] with her family. The patient and spouse relocated to [facility] in August 1988. Spouse, Ted is retired from the [employer]. Both patient and spouse have retired. 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 The patient is an avid ore crushing dust collector of many things and her collections are on display in the home angels, miniature shoes, beanie babies, books, classic Barbies, blue birds, and intricate baskets that bring her fransisco. She also enjoys crocheting and her daughter stay in constant contact. She has 1 daughter who is a dispatcher who comes to visit once a week. Her daughter that has her grandson in [place] will FaceTime once a week. She had an enjoyable Mother's Day. Medications/Allergies - Medications Home Medications: Ambulatory Orders Medication Instructions Recorded Confirmed Cholecalciferol (Vitamin D3) 6,000 unit PO DAILY 02/20/20 11/10/21 [Vitamin D3] Losartan [Cozaar] 50 mg PO BID 02/20/20 11/10/21 Metoprolol Tartrate [Lopressor] 100 mg PO BID 02/20/20 11/10/21 Red Yeast Rice 600 mg PO BID 02/20/20 11/10/21 OLANZapine [Zyprexa] 5 mg PO UD #16 tablet 05/18/21 11/10/21 ondansetron HCL [Zofran] 4 mg PO Q6HR PRN #30 tab 05/18/21 11/10/21 Apixaban [Eliquis] 5 mg PO BID #74 tablet 06/25/21 11/10/21 B Complex 1 tab PO DAILY 09/14/21 11/10/21 Biotin 1,000 mcg PO BID 09/14/21 11/10/21 Calcium Carbonate 1 tab PO DAILY 09/14/21 11/10/21 Lysine [l-Lysine] 500 mg .3X PER WEEK 09/14/21 11/10/21 Magnesium 1 tab PO DAILY 09/14/21 11/10/21 Multivitamin 2 tab PO DAILY 09/14/21 11/10/21 Pancreatic Enzymes 2 units PO .WITH MEALS 09/14/21 11/10/21 Potassium 99mg 1 tab PO DAILY 09/14/21 11/10/21 Vitamin B12 2,500 mcg PO DAILY 09/14/21 11/10/21 Vitamin C 282 1 tab PO TID 09/14/21 11/10/21 Nystatin [Mycostatin] 400,000 units PO Q3HR PRN 10/06/21 11/10/21 - Allergies Allergies/Adverse Reactions: Allergies Allergy/AdvReac Type Severity Reaction Status Date / Time No Known Drug Allergies Allergy Verified 04/23/21 11:27 Review of Systems - Constitutional Constitutional: reports: Fatigue (improving after pegfilgrastim injection). denies: Fever - Eyes Eyes: reports: Corrective lenses. denies: Irritation - Ears, Nose & Throat Ears, Nose & Throat: denies: Hearing loss - Cardiovascular Cardiovascular: reports: Edema (trace to LLE foot at baseline). denies: Chest pain - Respiratory Respiratory: denies: Cough - Gastrointestinal Gastrointestinal: reports: Other (Fair appetite, has added Ensure; takes pancreatic enzymes with meals). denies: Constipation (controlled with Benefiber (brand only)), Diarrhea, Vomiting - Genitourinary Genitourinary: denies: Dysuria - Musculoskeletal Musculoskeletal: denies: Assistive devices, Transfer issues - Neurological Neurological: denies: General weakness, Headache - Endocrine Endocrine: denies: Diabetes type 2 - All Other Systems All Other Systems: reports: Reviewed and negative Physical Exam - Physical Exam General Appearance: positive: No acute distress, Alert Eyes Bilateral: positive: Normal inspection, Other (+corrective lenses) ENT: positive: No signs of dehydration Neck: positive: Trachea midline Cardiovascular: positive: Regular rate & rhythm Respiratory: positive: No respiratory distress, Breath sounds nml Abdomen: positive: Non-tender, Soft, Nml bowel sounds. negative: Distended Skin: positive: No symptoms Extremities: positive: Pedal edema (trace left foot (baseline for several years)) Neurologic/Psychiatric: positive: Oriented x3, Mood/affect nml. negative: Weakness Palliative Care - POLST Patient has POLST: No Pain: No pain Tiredness/Fatigue: Moderate (4-6) Drowsiness/Sedation: Mild (1-3) Nausea: Moderate (4-6) Anorexia: Moderate (4-6) Dyspnea: None Depression: None Anxiety: None Sleep: Sleeps well Constipation: Managed - Palliative Care Discussion: Patient continues to have some mild old peripheral neuropathy related to chemoth erapy however, it is Presently not impacting her ability to function and therefore, we will continue to monitor and if it is over where after discussion regarding options of use with either gabapentin or pregabalin for management of symptoms if worsened or increased frequency. After pegfilgrastim injection the patient has weighed benefits versus burdens of it was extremely taxing on her energy level she does not wish to proceed with this again in the future. She also expresses today some mild disappointment regarding tumor burden not reducing but does offer that the next best thing was that disease is showing stability on most recent restaging scans. The patient is someone that requires a schedule and consistency and this is something to take note of moving forward. 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 Palliative care will continue to provide support for care coordination, anticipatory guidance and advance care planning. Recommendations/Counseling Done: 1. Mild peripheral neuropathy. Secondary to chemotherapy. Introduced role of gabapentin or pregabalin if symptoms progress or worsen and patient would be amenable in the future if symptoms downs require intervention at the present time, mild. Continue to monitor. 2. Fatigue. Steadily improving back to her prior baseline status post pegfilgrastim injection. Setting expectations regarding energy conservation. 3.Anorexia. Mild. Continue to encourage small frequent meals. Continue utilization of Ensure supplementation at least once per day but not to replace a meal. Secondary to chemotherapy. 4. Metastatic pancreatic cancer. Followed by oncology. Diagnosed April 2021. Continues with mFOLFOX 6. 5. Advanced care planning. Continue to build rapport and tease out goals of care moving forward. Total time spent 35 minutes with greater than 50% of the spent in counseling and coronation of care with the patient and spouse; examination of the patient; supportive listening; symptom management and anticipatory guidance. Disclaimer: The chart note was formulated using voice recognition technology and unfortunately sound alike errors may occur.
== END 2021-11-17 08:53 | disposition home or self-care (01) ==
LOC: PC 08:52
PROVIDERS: ATTEND Nurse Practitioner Family
DX: Z51.5 Encounter for palliative care (principal); R63.0 Anorexia; R53.83 Other fatigue; G62.0 Drug-induced polyneuropathy; T45.1X5A Adverse effect of antineoplastic and immunosuppressive drugs, initial encounter; C25.9 Malignant neoplasm of pancreas, unspecified; C78.7 Secondary malignant neoplasm of liver and intrahepatic bile duct; Z79.899 Other long term (current) drug therapy; Z79.01 Long term (current) use of anticoagulants; Z86.718 Personal history of other venous thrombosis and embolism
CPT/HCPCS: 99214

== ENCOUNTER 2022-06-18 21:43 | Emergency (ER) | payer MEDICARE, OTHER ==
--- NOTE | 2022-06-18 23:22 | ED Physician Documentation ---
History of Present Illness - Stated complaint Stated Complaint: L LEG REDNESS - Chief complaint Chief Complaint: Ext Problem - History obtained from History obtained from: Patient - History of Present Illness Timing: Today Pain level now: 2 Improved by: nothing Worsened by: palpation - Additonal information Additional information: since this morning, patient has had LLE swelling, erythema, TTP distal to left knee. Denies injury. No fevers at home. She has h/o DVT in LLE several months ago for which she is on Eliquis. She says the symptoms that led to that diagnosis had resolved. Denies chest pain, denies dyspnea Review of Systems Constitutional: reports: Reviewed and negative Cardiac: reports: Reviewed and negative Respiratory: reports: Reviewed and negative Skin: reports: Rash Musculoskeletal: reports: Extremity pain, Extremity swelling Neurologic: denies: Focal weakness, Numbness PD PAST MEDICAL HISTORY - Past Medical History Past Medical History: Yes Cardiovascular: Hypertension, Deep vein thrombosis Respiratory: None Neuro: None Endocrine/Autoimmune: None GI: Other HEALTH CARE TECHNICIAN: None : None HEENT: None Psych: None Musculoskeletal: None Derm: None - Past Surgical History Past Surgical History: Yes Ortho: Other /HEALTH CARE TECHNICIAN: Hysterectomy - Present Medications Home Medications: Ambulatory Orders Medication Instructions Recorded Confirmed Cholecalciferol (Vitamin D3) 6,000 unit PO DAILY 02/20/20 03/11/22 [Vitamin D3] Losartan [Cozaar] 50 mg PO BID 02/20/20 03/11/22 Metoprolol Tartrate [Lopressor] 100 mg PO BID 02/20/20 03/11/22 Red Yeast Rice 600 mg PO BID 02/20/20 03/11/22 OLANZapine [Zyprexa] 5 mg PO UD #16 tablet 05/18/21 03/11/22 ondansetron HCL [Zofran] 4 mg PO Q6HR PRN #30 tab 05/18/21 03/11/22 Apixaban [Eliquis] 5 mg PO BID #74 tablet 06/25/21 03/11/22 B Complex 1 tab PO DAILY 09/14/21 03/11/22 Biotin 1,000 mcg PO BID 09/14/21 03/11/22 Calcium Carbonate 1 tab PO DAILY 09/14/21 03/11/22 Lysine [l-Lysine] 500 mg .3X PER WEEK 09/14/21 03/11/22 Magnesium 1 tab PO DAILY 09/14/21 03/11/22 Multivitamin 2 tab PO DAILY 09/14/21 03/11/22 Pancreatic Enzymes 2 units PO .WITH MEALS 09/14/21 03/11/22 Potassium 99mg 1 tab PO DAILY 09/14/21 03/11/22 Vitamin B12 2,500 mcg PO DAILY 09/14/21 03/11/22 Vitamin C 282 1 tab PO TID 09/14/21 03/11/22 Nystatin [Mycostatin] 400,000 units PO Q3HR PRN 10/06/21 03/11/22 Folic Acid 99 mg PO DAILY 12/29/21 03/11/22 Pyridoxine HCl (Vitamin B6) [B-6] 99 mg PO DAILY 12/29/21 03/11/22 oxyCODONE [Roxicodone] 5 mg PO PRN 01/12/22 amLODIPine [Norvasc] 5 mg PO DAILY 04/27/22 04/27/22 Doxycycline [Vibramycin] 100 mg PO BID #14 tablet 06/19/22 - Allergies Allergies/Adverse Reactions: Allergies Allergy/AdvReac Type Severity Reaction Status Date / Time No Known Drug Allergies Allergy Verified 04/23/21 11:27 - Social History Does the pt smoke?: No Smoking Status: Never smoker Does the pt drink ETOH?: No Does the pt have substance abuse?: No - Immunizations Immunizations are current?: Yes - POLST Patient has POLST: No PD ED PE NORMAL - Vitals Vital signs reviewed: Yes - General General: Alert and oriented X 3, No acute distress, Well developed/nourished - Cardiac Cardiac: RRR, No murmur - Respiratory Respiratory: No respiratory distress, Clear bilaterally PD ED PE EXPANDED - Extremities LORI LE visual: 1 - swelling (TTP, uniform/circumfertial swelling, hot to touch, faint and poorly-marginated flat erythema), tenderness Results - Vitals Vitals: Vital Signs - 24 hr 06/18/22 06/18/22 06/19/22 22:00 22:27 00:52 Temperature 36.7 C 37.2 C 36.8 C Heart Rate 81 74 88 Respiratory 16 16 18 Rate Blood Pressure 162/66 H 179/95 H 119/76 O2 Saturation 99 99 99 Oxygen O2 Source Room air - Rads (name of study) LLE US Radiology: Prelim report reviewed, See rad report PD MEDICAL DECISION MAKING - ED course Complexity details: reviewed results, re-evaluated patient, considered differential, d/w patient ED course: LLE US negative for acute process including negative for DVT. Differential includes infectious cause such as cellulitis. Although would expect sharply marginated erythema with cellulitis, there are enough findings/descriptors consistent with cellulitis that it would be prudent to cover with appropriate antibiotic. She is given doxycycline with rx for same e- prescribed to her pharmacy of choice. Results of US d/w patient, return precautions reviewed. Departure - Departure Disposition: 01 Home, Self Care Clinical Impression: Cellulitis Condition: Good Instructions: ED Infec Skin Cellulitis Follow-Up: Amelie Akers PA-C [Primary Care Provider] - Prescriptions: Doxycycline [Vibramycin] 100 mg PO BID #14 tablet Comments: The ultrasound does not show any evidence of a blood clot (DVT), nor any other abnormality that would explain your symptoms. You are being given an antibiotic for possible cellulitis (which would not show on an ultrasound). The antibiotic (doxycycline) was given as a first dose in the ER and the rest of the prescription has been electronically submitted to [facility] pharmacy in [place]. Discharge Date/Time: 06/19/22 00:52
[2022-06-19] MEDS ORDERED: DOXYCYCLINE 100 MG TABLET PO STA (00:35)
[2022-06-19 00:53] VITALS: BP 119/76
--- NOTE | 2022-06-19 00:53 | Ultrasound Report ---
PROCEDURE: Duplex Ext Veins Left INDICATIONS: swelling, h/o DVT LLE TECHNIQUE: Real-time imaging, as well as color and pulse Doppler interrogation, were performed of the lower extr emity deep veins from the inguinal ligament to the popliteal fossa. COMPARISON: None. FINDINGS: The deep veins are normally compressible, and free of intraluminal thrombus. Color and pu lse Doppler demonstrate normal phasic intraluminal flow. There is normal augmentation response to di stal compression maneuver. IMPRESSION: 1. No evidence of deep venous thrombosis is in the left lower extremity. Reviewed by: Lonnie Perkins MD on 06/19/2022 1:01 AM [facility] Approved by: Lonnie Perkins MD on 06/19/2022 1:01 AM PST Station ID: [id number]
== END 2022-06-19 00:52 | disposition home or self-care (01) ==
LOC: ED 21:43
DX: L03.116 Cellulitis of left lower limb (principal)
CPT/HCPCS: 93971; 99282; 99284; A9270

== ENCOUNTER 2022-11-25 14:27 | Outpatient (CLI) | payer MEDICARE, OTHER ==
--- NOTE | 2022-11-25 14:56 | DEXA Report ---
PROCEDURE: Dexa Spine and/or Hip INDICATIONS: POST MENOPAUSAL TECHNIQUE: Dual energy x-ray absorptiometry (DXA) was performed on a dscout System. Regions measur ed are the AP Spine, femoral neck, and if needed forearm. COMPARISON: None FINDINGS: Lumbar Spine: Bone Mineral Density 1.189 g/cm/cm,T score 0.1. Left Femoral Neck: Bone Mineral Density 0.885 g/cm/cm, T score -1.1. Left Hip: Bone Mineral Density 0.859 g/cm/cm,T score -1.2. (T score greater or equal to -1.0: NORMAL) (T score from -1.1 to -2.4: OSTEOPENIA) (T score less than or equal to -2.5 to: OSTEOPOROSIS) Impression: By WHO criteria, this patient has minimal osteopenia of the hip. Patients with diagnosis of osteoporosis or osteopenia should have regular bone mineral density assess ment. For those eligible for Medicare, routine testing is allowed once every 2 years. Testing frequ ency can be increased for patients who have rapidly progressing disease or for those who are receivin g medical therapy to restore bone mass. Reviewed by: Keara Molina MD on 11/25/2022 2:55 PM PDT Approved by: Keara Molina MD on 11/25/2022 2:55 PM PDT Station ID: [id number]
== END 2022-11-25 14:28 | disposition home or self-care (01) ==
LOC: DI 14:27
PROVIDERS: ATTEND Physician Assistant Medical
DX: M85.89 Other specified disorders of bone density and structure, multiple sites (principal); Z78.0 Asymptomatic menopausal state

== ENCOUNTER 2022-12-09 11:12 | Outpatient (CLI) | payer MEDICARE, OTHER ==
--- NOTE | 2022-12-10 09:47 | Mammography Report ---
BILATERAL DIGITAL SCREENING MAMMOGRAM 3D/2D: 12/09/2022 CLINICAL: Routine screening. Comparison is made to exams dated: 04/10/2021 mammogram, 09/02/2016 mammogram, and 05/06/2015 mammogra m - [facility]. There are scattered areas of fibroglandular density in both breasts (category b / 25%-50% glandular t issue). No significant masses, calcifications, or other findings are seen in either breast. There has been no significant interval change. IMPRESSION: NEGATIVE There is no mammographic evidence of malignancy. A 1 year screening mammogram is recommended. Based on the Tyrer Cuzick model (a risk assessment model) the patients lifetime risk is 2.0% and her 10 year risk is 1.1%. According to the ACR, ACS, and NCCN guidelines, an annual breast MRI exam lakisha g with mammogram is recommended if the patients lifetime risk is 20% or greater. This exam was interpreted at Station ID: [id number]. NOTE: For mammograms, a report in lay terms will be sent to the patient. Approximately 15% of breast malignancies will not be visualized mammographically. In the management of a palpable breast mass, a negative mammogram must not discourage biopsy of a clinically suspicious lesion. Electronically Signed By: Maxx fairchild/jose enrique:12/10/2022 07:07:19 letter sent: No_Letter ACR BI-RADS Category 1: Negative 3341F PARENCHYMAL PATTERN: (A) - The breast(s) demonstrate(s) scattered fibroglandular densities. BI-RADS CATEGORY: (1) - 1 Mammogram [id number] 1 year screening LATERALITY: (B)
== END 2022-12-09 11:13 | disposition home or self-care (01) ==
LOC: DI 11:12
DX: Z12.31 Encounter for screening mammogram for malignant neoplasm of breast (principal)

== ENCOUNTER 2022-12-24 11:39 | Emergency (ER) | payer MEDICARE, OTHER ==
--- NOTE | 2022-12-24 14:06 | ED Physician Documentation ---
History of Present Illness - Stated complaint Stated Complaint: LFT LEG SWOLLEN/RED - Chief complaint Chief Complaint: Ext Problem - History obtained from History obtained from: Patient - Additonal information Additional information: Patient is a 67-year-old female with past medical significant for pancreatic adenocarcinoma on chemotherapy as well as DVT on Eliquis presenting with left leg swelling. Reports history of frequent cellulitis in the left lower extremity over the course of the last year. Swelling began earlier today. No associated fever, chills, nausea, vomiting, diarrhea or constipation. Review of Systems Constitutional: denies: Fever Eyes: denies: Loss of vision Ears: denies: Loss of hearing Nose: denies: Rhinorrhea / runny nose Throat: denies: Dental pain / toothache Cardiac: denies: Chest pain / pressure Respiratory: denies: Dyspnea GI: denies: Abdominal Pain : denies: Dysuria Skin: reports: Other (None circumferential erythema of the left calf.) PD PAST MEDICAL HISTORY - Past Medical History Cardiovascular: Hypertension, Deep vein thrombosis Respiratory: None Neuro: None Endocrine/Autoimmune: None GI: Other [employer]LE[employer] ENTREPR[employer]UR MEDIA PERSONALITY: None : None HEENT: None Psych: None Musculoskeletal: None Derm: None - Past Surgical History Past Surgical History: Yes 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 PERSONALITY: Hysterectomy - Present Medications Home Medications: Ambulatory Orders Medication Instructions Recorded Confirmed Cholecalciferol (Vitamin D3) 6,000 unit PO DAILY 02/20/20 12/16/22 [Vitamin D3] Losartan [Cozaar] 50 mg PO BID 02/20/20 12/16/22 Metoprolol Tartrate [Lopressor] 100 mg PO BID 02/20/20 12/16/22 Red Yeast Rice 600 mg PO BID 02/20/20 12/16/22 OLANZapine [Zyprexa] 5 mg PO UD #16 tablet 05/18/21 12/16/22 ondansetron HCL [Zofran] 4 mg PO Q6HR PRN #30 tab 05/18/21 12/16/22 Apixaban [Eliquis] 5 mg PO BID #74 tablet 06/25/21 12/16/22 B Complex 1 tab PO DAILY 09/14/21 12/16/22 Biotin 1,000 mcg PO BID 09/14/21 12/16/22 Calcium Carbonate 1 tab PO DAILY 09/14/21 12/16/22 Lysine [l-Lysine] 500 mg .3X PER WEEK 09/14/21 12/16/22 Magnesium 1 tab PO DAILY 09/14/21 12/16/22 Multivitamin 2 tab PO DAILY 09/14/21 12/16/22 Pancreatic Enzymes 2 units PO .WITH MEALS 09/14/21 12/16/22 Potassium 99mg 1 tab PO DAILY 09/14/21 12/16/22 Vitamin B12 2,500 mcg PO DAILY 09/14/21 12/16/22 Vitamin C 282 1 tab PO TID 09/14/21 12/16/22 Nystatin [Mycostatin] 400,000 units PO Q3HR PRN 10/06/21 12/16/22 Folic Acid 99 mg PO DAILY 12/29/21 12/16/22 Pyridoxine HCl (Vitamin B6) [B-6] 99 mg PO DAILY 12/29/21 12/16/22 oxyCODONE [Roxicodone] 5 mg PO PRN PRN 01/12/22 12/16/22 amLODIPine [Norvasc] 5 mg PO DAILY 04/27/22 12/16/22 Doxycycline [Vibramycin] 100 mg PO BID #14 tablet 06/19/22 12/16/22 Prochlorperazine Maleate 10 mg PO Q6H PRN 08/31/22 12/16/22 [Compazine] Sulfamethox/Trimeth 800/160 1 each PO BID #14 tablet 12/24/22 [Bactrim Ds 800/160] cephALEXin [Keflex] 500 mg PO Q6H #20 cap 12/24/22 - Allergies Allergies/Adverse Reactions: Allergies Allergy/AdvReac Type Severity Reaction Status Date / Time No Known Drug Allergies Allergy Verified 12/24/22 12:17 - Social History Does the pt smoke?: No Smoking Status: Never smoker Does the pt drink ETOH?: No Does the pt have substance abuse?: No - Immunizations Immunizations are current?: Yes - POLST Patient has POLST: No PD ED PE NORMAL - Vitals Vital signs reviewed: Yes (wnl) - General General: Alert and oriented X 3, No acute distress - HEENT HEENT: Atraumatic - Neck Neck: Supple, no meningeal sign - Cardiac Cardiac: RRR - Respiratory Respiratory: No respiratory distress - Abdomen Abdomen: Normal bowel sounds - Female Female : Deferred - Derm Derm: Other (Erythema of left calf) Results - Vitals Vitals: Oxygen O2 Source Room air - Labs Labs: Microbiology 12/24/22 14:45 Blood Culture - Preliminary Blood NO GROWTH AFTER 2 DAYS 12/24/22 14:30 Blood Culture - Preliminary Blood - Left Arm NO GROWTH AFTER 2 DAYS Laboratory Tests 12/24/22 12/24/22 12/24/22 14:30 14:30 14:30 WBC 11.1 H RBC 2.74 L Hgb 9.2 L Hct 28.1 L MCV 102.6 H MCH 33.6 H MCHC 32.7 RDW 15.0 Plt Count 229 MPV 10.0 Neut # (Auto) 8.6 H Lymph # (Auto) 2.3 [place] # (Auto) 0.1 Eos # (Auto) 0.1 Baso # (Auto) 0.0 Absolute Nucleated RBC 0.00 Nucleated RBC % 0.0 PT 15.4 H INR 1.4 H Sodium 139 Potassium 4.2 Chloride 111 Carbon Dioxide 22 Anion Gap 6.0 BUN 24 H Creatinine 0.7 Estimated GFR (MDRD) 83 L Glucose 88 Lactic Acid Calcium 9.0 Total Bilirubin 1.0 AST 34 ALT 35 Alkaline Phosphatase 80 Total Protein 7.5 Albumin 4.0 Globulin 3.5 Albumin/Globulin Ratio 1.1 Lipase 37 12/24/22 14:30 WBC RBC Hgb Hct MCV MCH MCHC RDW Plt Count MPV Neut # (Auto) Lymph # (Auto) [place] # (Auto) Eos # (Auto) Baso # (Auto) Absolute Nucleated RBC Nucleated RBC % PT INR Sodium Potassium Chloride Carbon Dioxide Anion Gap BUN Creatinine Estimated GFR (MDRD) Glucose Lactic Acid 1.2 Calcium Total Bilirubin AST ALT Alkaline Phosphatase Total Protein Albumin Globulin Albumin/Globulin Ratio Lipase PD Medical Decision Making - ED course ED course: Patient is a 67-year-old female with known history of DVT on Eliquis as well as pancreatic adenocarcinoma on chemotherapy presenting with left leg swelling. Notable erythema without induration or fluctuance to the left calf. Labs obtained demonstrated a minimal leukocytosis with a white blood cell count 11.1 but no significant electrolyte abnormality or elevation in lactic acid. No other sirs criterion's or indications of sepsis. Patient otherwise well- appearing. Ultrasonography of the left lower extremity is considered however patient is currently anticoagulated meaning the possibility of recurrent DVT is low. Discussed all findings with patient. Patient was given dose IV Rocephin here in the emergency department. Will discharge on course of Rocephin and Bactrim. Will encourage return to the emergency department for worsening symptoms or symptoms that are not improving with antibiotics over the course of the next 48 hours. Departure - Departure Disposition: 01 Home, Self Care Clinical Impression: Cellulitis Qualifiers: Site of cellulitis: extremity Site of cellulitis of extremity: lower extremity Laterality: left Qualified Code(s): L03.116 - Cellulitis of left lower limb Instructions: Cellulitis Dc Prescriptions: Sulfamethox/Trimeth 800/160 [Bactrim Ds 800/160] 1 each PO BID #14 tablet cephALEXin [Keflex] 500 mg PO Q6H #20 cap Comments: Thank you for allowing us to care for you today at [facility]. Today in the emergency department you are diagnosed with cellulitis of your left lower extremity. I have sent 2 antibiotics to your preferred pharmacy, [facility] in [place]. Please make a follow-up appoint with your primary care doctor soon as possible. Please drink plenty fluids and get plenty of rest. Please monitor the area carefully for any worsening infection. If at anytime your symptoms worsen or if they are not improving over the course of the next 36 to 48 hours please return to the emergency department. Discharge Date/Time: 12/24/22 17:16
[2022-12-24] MEDS ORDERED: cefTRIAXone 1 GM in SODIUM CHLORIDE 0.9% MINIBAG 100 ML IV STA (14:14)
[2022-12-24 14:40] LABS: BASOPHILS % (AUTO) 0.2 %; EOSINOPHILS # (AUTO) 0.1 10^3/uL (0.0-0.7); EOSINOPHILS % (AUTO) 1.3 %; HCT - HEMATOCRIT 28.1 % (37.0-47.0); HGB - HEMOGLOBIN 9.2 g/dL (12.0-16.0); LYMPHOCYTES # (AUTO) 2.3 10^3/uL (1.5-3.5); LYMPHOCYTES % (AUTO) 20.3 %; MEAN CORPUSCULAR HEMOGLOBIN 33.6 pg (27.0-31.0); MEAN CORPUSCULAR HGB CONC 32.7 g/dL (32.0-36.0); MEAN CORPUSCULAR VOLUME 102.6 fL (81.0-99.0); MONOCYTES # (AUTO) 0.1 10^3/uL (0.0-1.0); MONOCYTES % (AUTO) 0.7 %; NEUTROPHILS # (AUTO) 8.6 10^3/uL (1.5-6.6); NEUTROPHILS % (AUTO) 77.1 %; PLT - PLATELET COUNT 229 10^3/uL (130-450); RED BLOOD COUNT 2.74 10^6/uL (4.20-5.40); WHITE BLOOD COUNT 11.1 x10^3/uL (4.8-10.8)
[2022-12-24 14:49] LABS: INR 1.4 (0.8-1.2); PT - PROTHROMBIN TIME 15.4 secs (9.9-12.6)
[2022-12-24 14:50] LABS: ALBUMIN/GLOBULIN RATIO 1.1 (1.0-2.2); CREATININE 0.7 mg/dL (0.4-1.0); POTASSIUM 4.2 mmol/L (3.5-5.0); TOTAL PROTEIN 7.5 g/dL (6.7-8.2)
[2022-12-24 16:45] VITALS: BP 158/64
== END 2022-12-24 17:16 | disposition home or self-care (01) ==
LOC: ED 11:39
DX: L03.116 Cellulitis of left lower limb (principal); I10 Essential (primary) hypertension; Z86.718 Personal history of other venous thrombosis and embolism; Z79.01 Long term (current) use of anticoagulants
CPT/HCPCS: 36415; 80053; 83605; 83690; 85025; 85610; 87040; 96365; 99283

== ENCOUNTER 2023-07-07 10:15 | Outpatient (CLI) | payer MEDICARE, OTHER | END 2023-07-07 10:16 | disposition home or self-care (01) | LOC: DI 10:15 | PROVIDERS: ATTEND Physician Assistant Medical | DX: R00.2 Palpitations (principal) | CPT/HCPCS: 93306 ==

== ENCOUNTER 2023-10-10 08:00 | Outpatient (CLI) | payer MEDICARE, OTHER | END 2023-10-10 23:59 | disposition home or self-care (01) | LOC: PC 08:00 | PROVIDERS: ATTEND Nurse Practitioner Adult Health | DX: Z51.5 Encounter for palliative care (principal); K59.00 Constipation, unspecified; F41.9 Anxiety disorder, unspecified; G62.0 Drug-induced polyneuropathy; C25.9 Malignant neoplasm of pancreas, unspecified; C78.7 Secondary malignant neoplasm of liver and intrahepatic bile duct; C78.6 Secondary malignant neoplasm of retroperitoneum and peritoneum | CPT/HCPCS: 99215 ==

== ENCOUNTER 2023-12-27 12:00 | Outpatient (CLI) | payer MEDICARE, OTHER | END 2023-12-27 23:59 | disposition home or self-care (01) | LOC: PC 12:00 | PROVIDERS: ATTEND Nurse Practitioner Adult Health | DX: Z51.5 Encounter for palliative care (principal); G89.3 Neoplasm related pain (acute) (chronic); F41.9 Anxiety disorder, unspecified; C78.7 Secondary malignant neoplasm of liver and intrahepatic bile duct; C25.9 Malignant neoplasm of pancreas, unspecified; C78.6 Secondary malignant neoplasm of retroperitoneum and peritoneum; R11.0 Nausea; K59.00 Constipation, unspecified; R63.0 Anorexia; R53.83 Other fatigue; R53.1 Weakness; G62.0 Drug-induced polyneuropathy; T45.1X5A Adverse effect of antineoplastic and immunosuppressive drugs, initial encounter; Z79.899 Other long term (current) drug therapy; Z63.4 Disappearance and death of family member | CPT/HCPCS: 99214 ==

== ENCOUNTER 2024-02-14 08:00 | Outpatient (CLI) | payer MEDICARE, OTHER | END 2024-02-14 23:59 | disposition home or self-care (01) | LOC: PC 08:00 | PROVIDERS: ATTEND Nurse Practitioner Adult Health | DX: Z51.5 Encounter for palliative care (principal); C25.9 Malignant neoplasm of pancreas, unspecified; C78.7 Secondary malignant neoplasm of liver and intrahepatic bile duct; G89.3 Neoplasm related pain (acute) (chronic); Z79.633 Long term (current) use of mitotic inhibitor; R97.1 Elevated cancer antigen 125 [CA 125]; Z79.899 Other long term (current) drug therapy; F41.9 Anxiety disorder, unspecified; K59.00 Constipation, unspecified; Z71.89 Other specified counseling | CPT/HCPCS: 99215 ==

== ENCOUNTER 2024-02-19 12:34 | Emergency (ER) | payer MEDICARE, OTHER ==
[2024-02-19 13:01] LABS: BASOPHILS % (AUTO) 0.5 %; EOSINOPHILS # (AUTO) 0.1 10^3/uL (0.0-0.7); HCT - HEMATOCRIT 34.1 % (37.0-47.0); HGB - HEMOGLOBIN 10.4 g/dL (12.0-16.0); LYMPHOCYTES # (AUTO) 1.9 10^3/uL (1.5-3.5); LYMPHOCYTES % (AUTO) 22.4 %; MEAN CORPUSCULAR HEMOGLOBIN 29.6 pg (27.0-31.0); MEAN CORPUSCULAR HGB CONC 30.5 g/dL (32.0-36.0); MEAN CORPUSCULAR VOLUME 97.2 fL (81.0-99.0); MEAN PLATELET VOLUME 10.6 fL (7.9-10.8); MONOCYTES # (AUTO) 0.2 10^3/uL (0.0-1.0); MONOCYTES % (AUTO) 2.4 %; NEUTROPHILS # (AUTO) 6.1 10^3/uL (1.5-6.6); NEUTROPHILS % (AUTO) 73.3 %; PLT - PLATELET COUNT 296 10^3/uL (130-450); RED BLOOD COUNT 3.51 10^6/uL (4.20-5.40); WHITE BLOOD COUNT 8.3 x10^3/uL (4.8-10.8)
--- NOTE | 2024-02-19 13:07 | ED Physician Documentation ---
History of Present Illness - Stated complaint Stated Complaint: SWOLLEN ABD - Chief complaint Chief Complaint: Abd Pain - Additonal information Additional information: Patient is a 68-year-old female with past medical history of hypertension and pancreatic cancer she [place] [facility] [place]. Cortez her oncologist currently undergoing chemotherapy treatment with her diagnosis back in 2020. She notes she has known metastatic disease to her liver but unsure if anywhere else. She presents to the emergency department with swollen abdomen that has started about 3 weeks ago and progressively worsened. She has been trying to change her diet eating less dairy and taking Gas-X and laxatives at home for symptoms without relief. She notes some mild nausea but this is not unusual given her chemotherapy treatment. She also reports some softer bowel movements and diarrhea but does not feel any improvement with the abdominal swelling after having a bowel movement. She denies any fevers or chills she denies any significant abdominal pain associated with her symptoms. She had a CT scan on Tuesday but has not heard back on the results this was ordered by her oncologist. 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 - Present Medications Home Medications: Ambulatory Orders Medication Instructions Recorded Confirmed Cholecalciferol (Vitamin D3) 6,000 unit PO DAILY 02/20/20 02/07/24 [Vitamin D3] Losartan [Cozaar] 50 mg PO BID 02/20/20 02/07/24 Metoprolol Tartrate [Lopressor] 100 mg PO BID 02/20/20 02/07/24 Red Yeast Rice 600 mg PO BID 02/20/20 02/07/24 OLANZapine [Zyprexa] 5 mg PO UD #16 tablet 05/18/21 02/07/24 Apixaban [Eliquis] 5 mg PO BID #74 tablet 06/25/21 02/07/24 B Complex 1 tab PO DAILY 09/14/21 02/07/24 Biotin 1,000 mcg PO BID 09/14/21 02/07/24 Calcium Carbonate 1 tab PO DAILY 09/14/21 02/07/24 Lysine [l-Lysine] 500 mg .3X PER WEEK 09/14/21 02/07/24 Magnesium 1 tab PO DAILY 09/14/21 02/07/24 Multivitamin 2 tab PO DAILY 09/14/21 02/07/24 Pancreatic Enzymes 2 units PO .WITH MEALS 09/14/21 02/07/24 Potassium 99mg 1 tab PO DAILY 09/14/21 02/07/24 Vitamin B12 2,500 mcg PO BID 09/14/21 02/07/24 Vitamin C 282 1 tab PO TID 09/14/21 02/07/24 Nystatin [Mycostatin] 400,000 units PO Q3HR PRN 10/06/21 02/07/24 Folic Acid 99 mg PO BID 12/29/21 02/07/24 Pyridoxine HCl (Vitamin B6) [B-6] 99 mg PO DAILY 12/29/21 02/07/24 oxyCODONE [Roxicodone] 5 mg PO PRN PRN 01/12/22 02/07/24 amLODIPine [Norvasc] 5 mg PO BID 04/27/22 02/07/24 Doxycycline [Vibramycin] 100 mg PO BID #14 tablet 06/19/22 02/07/24 Prochlorperazine Maleate 10 mg PO Q6H PRN 08/31/22 02/07/24 [Compazine] - Allergies Allergies/Adverse Reactions: Allergies Allergy/AdvReac Type Severity Reaction Status Date / Time cephalexin Allergy Rash Verified 02/19/24 12:37 sulfamethizole Allergy Rash Verified 02/19/24 12:37 - Social History Does the pt smoke?: No Smoking Status: Never smoker Does the pt drink ETOH?: No Does the pt have substance abuse?: No - Immunizations Immunizations are current?: Yes - POLST Patient has POLST: No PD ED PE NORMAL - Vitals Vital signs reviewed: Yes - General General: Alert and oriented X 3 - HEENT HEENT: Atraumatic - Neck Neck: Supple, no meningeal sign - Cardiac Cardiac: RRR, No murmur, No gallop, No rub - Respiratory Respiratory: No respiratory distress, Clear bilaterally - Abdomen Abdomen: Normal bowel sounds, Other (Distended abdomen that is soft no specific rebound tenderness or guarding. No positive fluid weight on evaluation and active bowel sounds with no tympanic sounds on auscultation.) - Female Female : Deferred - Rectal Rectal: Deferred - Back Back: No CVA TTP - Derm Derm: Normal color - Neuro Neuro: Alert and oriented X 3 Results - Vitals Vitals: Vital Signs - 24 hr 02/19/24 12:37 Temperature 36.3 C L Heart Rate 86 Respiratory 18 Rate Blood Pressure 161/85 H O2 Saturation 99 Oxygen O2 Source Room air - Labs Labs: Laboratory Tests 02/19/24 02/19/24 12:55 12:55 WBC 8.3 RBC 3.51 L Hgb 10.4 L Hct 34.1 L MCV 97.2 MCH 29.6 MCHC 30.5 L RDW 14.0 Plt Count 296 MPV 10.6 Neut # (Auto) 6.1 Lymph # (Auto) 1.9 [place] # (Auto) 0.2 Eos # (Auto) 0.1 Baso # (Auto) 0.0 Absolute Nucleated RBC 0.00 Nucleated RBC % 0.0 Sodium 137 Potassium 4.1 Chloride 107 Carbon Dioxide 21 Anion Gap 9.0 BUN 14 Creatinine 0.9 Estimated GFR (MDRD) 62 L Glucose 94 Calcium 9.1 Total Bilirubin 0.5 AST 31 ALT 19 Alkaline Phosphatase 96 Total Protein 6.7 Albumin 3.8 Globulin 2.9 Albumin/Globulin Ratio 1.3 Lipase < 10 L PD Medical Decision Making - ED course Complexity details: reviewed old records, reviewed results ED course: Patient is a 68-year-old female presenting to the emergency department with distended abdomen symptoms have been going on for about 3 weeks she notes no vomiting mild nausea but this is not unusual as she is undergoing chemotherapy treatment for history of pancreatic cancer. She notes abdomen has been persistently swollen but denies any relief after having a bowel movement. She notes more diarrhea recently but has been taking laxatives and Gas-X for symptoms. Vitals are stable on arrival. Physical exam shows nontender abdomen but diffusely distended no tympanic sounds on auscultation. Active bowel sounds on auscultation. Labs obtained in triage show no significant leukocytosis. Hemoglobin is 10.4 no acute change from anemia noted in labs on 02/13. Additionally creatinine is stable and lipase is less than 10 this appears stable as well. Discussed with patient CT scan reviewed from 02 15 that she has not received results back from does show increased metastatic disease with moderate ascites now. 1410: Discussed case with Dr. Pfeiffer oncology at [place] who was on-call for Dr. Cortez today. She will update Dr. Cortez who is working tomorrow. Will plan for patient to follow-up with Dr. Cortez on Tuesday. Patient updated and is agreeable with this plan. She understands new findings show CT scan from 02/16 with increased metastatic disease to head of pancreas increased liver lesions from previous and new peritoneal nodules in abdomen and pelvis. Patient was instructed on strict follow-up with her oncologist as further treatment and plans need to be performed. She notes pain is not worse in her abdomen than it has been in the last 3 weeks. She denies any fevers and has been eating and drinking well here in the emergency department. Patient will follow-up with oncology for scheduled paracentesis for fluid to be tested in outpatient setting. She is instructed on strict return precautions including worsening abdominal pain fevers or shortness of breath these are signs of complications from her ascites. Patient understands and is agreeable with this plan. Departure - Departure Forms: PCP List
[2024-02-19 13:17] LABS: ALBUMIN 3.8 g/dL (3.2-5.5); ALBUMIN/GLOBULIN RATIO 1.3 (1.0-2.2); ALKALINE PHOSPHATASE 96 IU/L (42-121); ALT ALANINE AMINOTRANSFERASE 19 IU/L (10-60); AST ASPARTATE AMINOTRANSFERASE 31 IU/L (10-42); BILIRUBIN,TOTAL 0.5 mg/dL (0.2-1.0); BUN - BLOOD UREA NITROGEN 14 mg/dL (6-20); CALCIUM 9.1 mg/dL (8.5-10.3); CARBON DIOXIDE - CO2 21 mmol/L (21-32); CHLORIDE 107 mmol/L (101-111); CREATININE 0.9 mg/dL (0.6-1.3); GFR - MDRD 62 (>89); GLUCOSE 94 mg/dL (74-104); POTASSIUM 4.1 mmol/L (3.5-4.5); SODIUM 137 mmol/L (135-145); TOTAL PROTEIN 6.7 g/dL (6.4-8.9)
[2024-02-19 13:34] LABS: LIPASE < 10 U/L (11-82)
[2024-02-19 14:43] VITALS: BP 128/68; O2SAT 95
== END 2024-02-19 14:38 | disposition home or self-care (01) ==
LOC: ED 12:34
DX: R18.8 Other ascites (principal); C78.89 Secondary malignant neoplasm of other digestive organs; Z79.60 Long term (current) use of unspecified immunomodulators and immunosuppressants; I10 Essential (primary) hypertension; Z86.718 Personal history of other venous thrombosis and embolism; Z79.899 Other long term (current) drug therapy
CPT/HCPCS: 36415; 80053; 83690; 85025; 99283; 99284

== ENCOUNTER 2024-02-27 10:50 | Day surgery (SDC) | payer MEDICARE, OTHER ==
[2024-02-27] MEDS: LACTATED RINGERS 1,000 ML IV ONE ×2 (11:17→15:05)
--- NOTE | 2024-02-27 12:21 | ANESTHESIA ---
Pre-Anesthesia VS, & Labs - Diagnosis PANCREATIC CANCER - Procedure PORTACATH REMOVAL AND REPLACEMENT Height: 5 ft 5 in Weight (kg): 79.6 kg Body Mass Index: 29.2 BMI Classification: Overweight - NPO >8 hours - Is Patient ?: No Home Medications and Allergies Home Medications: Ambulatory Orders busPIRone [Buspar] 5 mg PO BID PRN 02/23/24 Losartan [Cozaar] 50 mg PO BID 02/20/20 Metoprolol Tartrate [Lopressor] 100 mg PO BID 02/20/20 Red Yeast Rice 600 mg PO BID 02/20/20 B Complex 1 tab PO DAILY 09/14/21 Biotin 1,000 mcg PO BID 09/14/21 Lysine [l-Lysine] 500 mg .3X PER WEEK 09/14/21 Magnesium 1 tab PO DAILY 09/14/21 Multivitamin 2 tab PO DAILY 09/14/21 Pancreatic Enzymes 2 units PO .WITH MEALS 09/14/21 Potassium 99mg 1 tab PO DAILY 09/14/21 Vitamin B12 2,500 mcg PO BID 09/14/21 Vitamin C 282 1 tab PO TID 09/14/21 Folic Acid 99 mg PO BID 12/29/21 oxyCODONE [Roxicodone] 5 mg PO PRN PRN 01/12/22 amLODIPine [Norvasc] 5 mg PO BID 04/27/22 busPIRone [Buspar] 5 mg PO BID PRN 02/23/24 Allergies/Adverse Reactions: Allergies Allergy/AdvReac Type Severity Reaction Status Date / Time cephalexin Allergy Rash Verified 02/19/24 12:37 sulfamethizole Allergy Rash Verified 02/19/24 12:37 Anes History & Medical History - Anesthetic History Anesthesia Complications: reports: No previous complications Family history of Anesthesia Complications: Denies Family history of Malignant Hyperthermia: Denies - Medical History Cardiovascular: reports: Hypertension, Deep vein thrombosis, Other (PREVIOUS ECHO AND EKG DT POSSIBLE PVCS WERE INSIGNIFICANT FOR CARDIAC DISEASE PER PT) Pulmonary: reports: None Gastrointestinal: reports: Other Urinary: reports: None Neuro: reports: None Musculoskeletal: reports: None Endocrine/Autoimmune: reports: None Blood Disorders: reports: None Skin: reports: None Smoking Status: Never smoker Psychosocial: reports: No issues indicated History of Cancer?: Yes (PANCREATIC CANCER ONGOING) - Surgical History Eyes Ears Nose Throat (EENT): reports: Cataracts Gynecologic: reports: Hysterectomy Orthopedic: reports: Other Results - EKG Results EKG Comparison: Reviewed EKG, Normal EKG Exam General: Alert, Oriented x3, Cooperative, No acute distress Dental: WNL Mouth Openin Fingerbreadth Neck Mobility: Normal Mallampati classification: II Mental/Cognitive Status: Alert/Oriented X3, Normal for patient Cognitive Status: Within normal limits Plan Anesthesia Type: General Consent for Procedure(s) Verified and Reviewed: Yes Code Status: Attempt Resuscitation ASA classification: 3-Severe systemic disease Is this case an emergency?: No
[2024-02-27] MEDS ORDERED: LIDOCAINE 1%-EPI 1:100000 20 ML MDV ONE (13:26)
[2024-02-27] MEDS ORDERED: iohexoL-240 10 ML VIAL IVP ONE (13:42)
[2024-02-27] MEDS ORDERED: PROPOFOL 500 MG/50 ML 500 MG/50 ML VIAL ONE (14:02)
[2024-02-27] MEDS ORDERED: ceFAZolin 1 GM VIAL ONE (14:02)
[2024-02-27] MEDS ORDERED: SODIUM CHLORIDE 0.9% 10 ML VIAL IVP ONE (14:02)
[2024-02-27] MEDS ORDERED: fentaNYL 100 MCG/2 ML VIAL ONE (14:05)
[2024-02-27] MEDS: LIDOCAINE 1%-EPI 1:100000 50 ML VIAL SUBQ ONE (14:30)
[2024-02-27] MEDS: BUPIVACAINE 0.5% PF 30 ML VIAL INFIL ONE (14:30)
[2024-02-27] MEDS ORDERED: ACETAMINOPHEN 325 MG TABLET PO PRN (15:09)
[2024-02-27] MEDS ORDERED: ONDANSETRON 4 MG/2 ML VIAL IVP PRN (15:09)
--- NOTE | 2024-02-27 15:12 | OPERATIVE REPORT ---
Operative Report - General Procedure Date: 02/27/24 Planned Procedure: port evaluation L SC port removal new port placement Pre-Op Diagnosis: metastatic pancreatic cancer, non functional port Procedure Performed: port evaluation L SC port removal under fluoroscopy guidance new R IJ port placement with ultrasound and fluoroscopy guidance Post Op Diagnosis: metastatic pancreatic cancer, non functional L SC port - Procedure Note Primary Surgeon: Dr. Sangita Kaufman Anesthesia Provider: Judi Thapa CRNA Anesthesia Technique: Local, MAC Estimated Blood Loss (mL): 10 Indications: The patient has metastatic pancreatic cancer for which she is undergoing palliative chemotherapy. For this, she requires a portacatheter. She has a left subclavian port catheter that has been in place and has not been functional for the last 2 weeks. Her imaging of the port does not reflect the overall port, on my interpretation of the images. I recommended that we evaluate the port prior to removal and replacement. We discussed the risks, benefits, and alternatives of port evaluation and replacement including bleeding, infection, damage to surrounding structures including blood vessels and the lung, dysfunction of the port requiring removal or replacement, infection of the port requiring removal, and the possible need for further surgeries or procedures. The patient voiced understanding, her questions were answered, and she wished to proceed. A consent was signed by the patient prior to the procedure. Findings: 1. L SC port with leakage 2. L SC port difficult to remove, significant resistance, catheter removed, intact 3. R IJ port placed in patent vein, flushes and draws easily, loaded with 2mL 100U/mL heparin Complications: None - Other Other Information/Narrative: The patient was taken to the operative suite and placed in the supine position preoperative ERAS medications given. Preoperative antibiotics given. MAC anesthesia was induced to the appropriate level of consciousness. An ultrasound was used to verify the right internal jugular vein was widely patent. The patient was then prepped and draped in the usual, sterile fashion. First, attention was turned to the left subclavian port. A Singh needle was attached to the port and withdrew a small amount of fluid, but did not flush. With attempted flush with normal saline, the patient had discomfort and a small wheal was raised close to her clavicle. At this point, I abandoned further attempts to evaluate with a dye study as the port was clearly not functional. Attention was then turned to the right neck. Next, a sterile ultrasound probe was used to visualize the right internal jugular vein local anesthetic was injected into the skin and subcutaneous tissues overlying this vessel and an 11 blade scalpel was used to make a small skin marco. Next, under direct ultrasound guidance, a Cook needle was used to gain access to the right internal jugular vein. This was successful on the first attempt. There was excellent return of dark red nonpulsatile blood. A guidewire was passed through the Cook needle without resistance. Fluoroscopy was used to verify the position of the wire. Ultrasound was also used to verify the position of the wire. Next, attention was turned to the right chest. The location was chosen on the right anterior chest wall for the portacatheter to sit. The skin and subcutaneo us tissues in this area were anesthetized with local as was the path which the catheter would follow up to the neck incision. A 15 blade scalpel was used to make a 2 cm incision in the which was carried down through the skin and subcutaneous tissues to the level of the clavipectoral fascia. A pocket was made with blunt dissection to accommodate the port. Port easily fit within the pocket. 2 interrupted sutures of 3-0 PDS were placed through the port to tack it to the clavipectoral fascia. These were tied into place and then the port was tunneled from the inferior chest wall incision to the superior neck incision. Next, the catheter was cut to the appropriate length, 20 cm, under direct fluoroscopic guidance. A dilator and sheath were passed over the guidewire under direct fluoroscopic guidance and the dilator and guidewire were removed leaving only the breakaway sheath in place. The catheter was passed through the sheath and the sheath was broken away. The catheter was the only thing that remained within the vessel. Fluoroscopy confirmed that the catheter tip was in good position and that there were no kinks at the neck. The catheter flushed and [place] easily. Next, 3-0 Vicryl was used in an interrupted fashion to reapproximate the deep dermal tissues at the chest incision. Then, 4-0 Monocryl was used in an interrupted subcuticular fashion to reapproximate the skin at the neck incision and in a running subcuticular fashion to reapproximate the skin at the chest incision. A sterile dressing of skin glue was placed. The port was flushed with 2 mL 100 units/mL heparinized saline. Now that the new port was in place and noted to be functional, I returned my attention to the left chest. An incision was made overlying the previously placed, nonfunctional port. The incision was carried down to the level of the port and the capsule around the port was incised. The sutures holding the port in place were identified and removed. Gentle traction was applied to the catheter. There was significantly more resistance than his typical. Under direct fluoroscopy guidance, the port was removed and the catheter was noted to be intact. Pressure was held at this location for 5 minutes. Then the pocket where the port had been was flushed with normal saline. Next a 3-0 Vicryl was used to reapproximate the deep dermal tissues and 4-0 Monocryl was used in a running subcu lenticular fashion to reapproximate the skin edges. A sterile dressing was placed. The patient tolerated the procedure well and there were no complications. A postoperative chest x-ray is pending at this time.
--- NOTE | 2024-02-27 15:21 | ANESTHESIA POST OP EVALUATION ---
Anesthesia Post Eval - Post Anesthesia Eval CV Function Including HR & BP: Stable Pain Control: Satisfactory Nausea & Vomiting: Negative Mental Status: Baseline Respiratory Status: Airway Patent Hydration Status: Satisfactory Anesthesia Complications: None
[2024-02-27 15:24] VITALS: BP 107/71; O2SAT 94
--- NOTE | 2024-02-27 16:13 | XRAY Report ---
PROCEDURE: Post Port Placement 1V CXR INDICATIONS: R IJ port placement, L SC removal TECHNIQUE: One view of the chest was acquired. COMPARISON: 07/19/2023 FINDINGS: Surgical changes and devices: Right IJ port tip projects over the low SVC. Lungs and pleura: No pleural effusions or pneumothorax. Lungs are clear. Mediastinum: Mediastinal contours appear normal. Heart size is normal. Bones and chest wall: No suspicious bony lesions. Overlying soft tissues appear unremarkable. IMPRESSION: Right IJ port tip projects over the low SVC. No pneumothorax. Reviewed by: Jeffrey Cox MD on 02/27/2024 4:11 PM PDT Approved by: Jeffrey Cox MD on 02/27/2024 4:11 PM PDT Station ID: [id number]
--- NOTE | 2024-02-28 12:16 | XRAY Report ---
PROCEDURE: OR Port-A-Cath INDICATIONS: PORT REMOVAL/REPLACEMENT CONTRAST: None FLUORO TIME: 000.5 TECHNIQUE: Real time fluoroscopy was performed of the thorax. COMPARISON: None. FINDINGS: Fluoroscopic guidance utilized for a placement of a right IJ port. IMPRESSION: Fluoroscopic guidance utilized for placement of a right IJ port. Reviewed by: Jeffrey Cox MD on 02/28/2024 12:14 PM PDT Approved by: Jeffrey Cox MD on 02/28/2024 12:14 PM PDT Station ID: [id number]
== END 2024-02-27 10:51 | disposition home or self-care (01) ==
LOC: SDS 10:50
PROVIDERS: ATTEND Surgery
DX: T82.594A Other mechanical complication of infusion catheter, initial encounter (principal); I10 Essential (primary) hypertension; C25.9 Malignant neoplasm of pancreas, unspecified
CPT/HCPCS: 36561; 36590; C1788; J3490; J7120; Q9966

== ENCOUNTER 2024-02-28 09:39 | Outpatient (CLI) | payer MEDICARE, OTHER ==
--- NOTE | 2024-02-28 13:56 | Ultrasound Report ---
PROCEDURE: Abdominal Paracentesis INDICATIONS: PANCREATIC CANCER TECHNIQUE: The indications, alternatives, benefits, risks, and complications of the procedure were explained to the patient. Written informed consent was obtained and placed in the chart. The abdomen and pelvis were examined sonographically, and an appropriate site was chosen for paracentesis. The skin was pre pared and draped in the usual sterile fashion, and 1% lidocaine was infiltrated from the skin down th rough the peritoneal surface. A 19-gauge catheter-covered needle was then introduced into the perito gaby space, the catheter was advanced and the needle was withdrawn, and thereafter peritoneal fluid w as withdrawn. The catheter was then removed and a dressing was applied. The fluid was discarded if the clinician did not order diagnostic testing of the fluid. COMPARISON: CT abdomen/pelvis 02/17/2024 FINDINGS: Access site: Right lower quadrant Needle: One-Step centesis catheter with introducer needle. Fluid volume and description: 3.8 L yellow fluid Fluid sent for diagnostic testing: Not requested Medications: 1% lidocaine for local anaesthesia. Complications: None. IMPRESSION: Successful ultrasound-guided paracentesis. Reviewed by: Bertin Gamboa MD on 02/28/2024 1:54 PM PDT Approved by: Bertin Gamboa MD on 02/28/2024 1:54 PM PDT Station ID: [id number]
== END 2024-02-28 09:40 | disposition home or self-care (01) ==
LOC: DI 09:39
PROVIDERS: ATTEND Internal Medicine Hematology & Oncology
DX: C25.0 Malignant neoplasm of head of pancreas (principal)
CPT/HCPCS: 49083

== ENCOUNTER 2024-03-19 14:00 | Emergency (ER) | payer MEDICARE, OTHER ==
[2024-03-19 14:42] VITALS: O2SAT 97
--- NOTE | 2024-03-19 15:34 | ED Physician Documentation ---
PD HPI ABD PAIN - Stated complaint Stated Complaint: ABD DRAIN - Chief complaint Chief Complaint: Abd Pain - History obtained from History obtained from: Patient - Additional information Additional information: She has metastatic pancreatic cancer and has been requiring intermittent paracenteses for symptomatic ascites and presents for that. Tried to get an appointment in radiology but they were too full. PD PAST MEDICAL HISTORY - Past Medical History Past Medical History: Yes Cardiovascular: Hypertension, Deep vein thrombosis, Other Respiratory: None Neuro: None Endocrine/Autoimmune: None GI: Other HR ADVISOR: None : None HEENT: None Psych: None, Anxiety Musculoskeletal: None Derm: None - Past Surgical History Past Surgical History: Yes Ortho: Other /HR ADVISOR: Hysterectomy HEENT: Cataracts - Present Medications Home Medications: Ambulatory Orders Medication Instructions Recorded Confirmed Losartan [Cozaar] 50 mg PO BID 02/20/20 03/16/24 Metoprolol Tartrate [Lopressor] 100 mg PO BID 02/20/20 03/16/24 Red Yeast Rice 600 mg PO BID 02/20/20 03/16/24 Apixaban [Eliquis] 5 mg PO BID #74 tablet 06/25/21 03/16/24 B Complex 1 tab PO DAILY 09/14/21 03/16/24 Biotin 1,000 mcg PO BID 09/14/21 03/16/24 Lysine [l-Lysine] 500 mg .3X PER WEEK 09/14/21 03/16/24 Magnesium 1 tab PO DAILY 09/14/21 03/16/24 Multivitamin 2 tab PO DAILY 09/14/21 03/16/24 Pancreatic Enzymes 2 units PO .WITH MEALS 09/14/21 03/16/24 Potassium 99mg 1 tab PO DAILY 09/14/21 03/16/24 Vitamin B12 2,500 mcg PO BID 09/14/21 03/16/24 Vitamin C 282 1 tab PO TID 09/14/21 03/16/24 Folic Acid 99 mg PO BID 12/29/21 03/16/24 oxyCODONE [Roxicodone] 5 mg PO PRN PRN 01/12/22 03/16/24 amLODIPine [Norvasc] 5 mg PO BID 04/27/22 03/16/24 busPIRone [Buspar] 5 mg PO BID PRN 02/23/24 03/16/24 Pyridoxine [Vitamin B-6] 100 mg PO DAILY 03/16/24 03/16/24 Thiamine HCl [Vitamin B-1] 100 mg PO DAILY 03/16/24 03/16/24 - Allergies Allergies/Adverse Reactions: Allergies Allergy/AdvReac Type Severity Reaction Status Date / Time cephalexin Allergy Rash Verified 02/19/24 12:37 sulfamethizole Allergy Rash Verified 02/19/24 12:37 - Social History Does the pt smoke?: No Smoking Status: Never smoker Does the pt drink ETOH?: No Does the pt have substance abuse?: No - Immunizations Immunizations are current?: Yes - POLST Patient has POLST: No PD ED PE NORMAL - Vitals Vital signs reviewed: Yes - General General: Alert and oriented X 3, No acute distress - Abdomen Abdomen: Normal bowel sounds, Soft, Non tender, Other (Distended with fluid wave, nontender) - Neuro Neuro: Alert and oriented X 3 Results - Vitals Vitals: Vital Signs - 24 hr 03/19/24 14:09 Temperature 36.5 C Heart Rate 90 Respiratory 16 Rate Blood Pressure 130/75 O2 Saturation 97 Oxygen O2 Source Room air Procedures - Paracentesis - Major Preparation: Consent obtained, Ultrasound guidance, Sterile prep and drape, Local anesthesia (local 1% lido) Location: RLQ Technique: Z-tract Fluid: Clear (5.2 liters) Aftercare: No complications Departure - Departure Disposition: 01 Home, Self Care Clinical Impression: Metastatic adenocarcinoma Ascites Qualifiers: Ascites type: malignant Qualified Code(s): R18.0 - Malignant ascites Condition: Good Record reviewed to determine appropriate education?: Yes Instructions: Paracentesis Dc Comments: We got a little over 5 L off today. Follow-up with oncology as routine. Return for new or worsening symptoms.
[2024-03-19 15:40] VITALS: BP 126/67
== END 2024-03-19 15:45 | disposition home or self-care (01) ==
LOC: ED 14:00
DX: C25.9 Malignant neoplasm of pancreas, unspecified (principal); C79.9 Secondary malignant neoplasm of unspecified site; R18.0 Malignant ascites; I10 Essential (primary) hypertension; Z86.718 Personal history of other venous thrombosis and embolism; Z79.01 Long term (current) use of anticoagulants; Z79.899 Other long term (current) drug therapy
CPT/HCPCS: 49082; 99283

== ENCOUNTER 2024-03-28 13:29 | Outpatient (CLI) | payer MEDICARE, OTHER ==
--- NOTE | 2024-03-28 15:16 | Ultrasound Report ---
PROCEDURE: Abdominal Paracentesis INDICATIONS: PANCREATIC CA TECHNIQUE: The indications, alternatives, benefits, risks, and complications of the procedure were explained to the patient. Written informed consent was obtained and placed in the chart. The abdomen and pelvis were examined sonographically, and an appropriate site was chosen for paracentesis. The skin was pre pared and draped in the usual sterile fashion, and 1% lidocaine was infiltrated from the skin down th rough the peritoneal surface. A 19-gauge catheter-covered needle was then introduced into the perito gaby space, the catheter was advanced and the needle was withdrawn, and thereafter peritoneal fluid w as withdrawn. The catheter was then removed and a dressing was applied. The fluid was discarded if the clinician did not order diagnostic testing of the fluid. COMPARISON: 02/28/2024 FINDINGS: Access site: Right lower quadrant abdomen Needle: One-Step centesis catheter with introducer needle. Fluid volume and description: 6 L of clear fluid. Fluid sent for diagnostic testing: None Medications: 1% lidocaine for local anaesthesia. Complications: None. IMPRESSION: Successful ultrasound-guided paracentesis. Reviewed by: Joe Caal MD on 03/28/2024 3:15 PM PDT Approved by: Joe Caal MD on 03/28/2024 3:15 PM PDT Station ID: [id number]
== END 2024-03-28 13:30 | disposition home or self-care (01) ==
LOC: DI 13:29
PROVIDERS: ATTEND Internal Medicine Medical Oncology
DX: C25.9 Malignant neoplasm of pancreas, unspecified (principal)
CPT/HCPCS: 49083

== ENCOUNTER 2024-04-06 08:17 | Outpatient (CLI) | payer MEDICARE, OTHER ==
--- NOTE | 2024-04-06 11:54 | Ultrasound Report ---
PROCEDURE: Abdominal Paracentesis INDICATIONS: PANCREATIC CA TECHNIQUE: The indications, alternatives, benefits, risks, and complications of the procedure were explained to the patient. Written informed consent was obtained and placed in the chart. The abdomen and pelvis were examined sonographically, and an appropriate site was chosen for paracentesis. The skin was pre pared and draped in the usual sterile fashion, and 1% lidocaine was infiltrated from the skin down th rough the peritoneal surface. A 19-gauge catheter-covered needle was then introduced into the perito gaby space, the catheter was advanced and the needle was withdrawn, and thereafter peritoneal fluid w as withdrawn. The catheter was then removed and a dressing was applied. The fluid was discarded if the clinician did not order diagnostic testing of the fluid. COMPARISON: 03/28/2024, 02/28/2024 FINDINGS: Access site: Right lower quadrant (catheter was dislodged after initial placement, and repeat cathet er placement was performed with fluid return) Needle: One-Step centesis catheter with introducer needle. Fluid volume and description: 0.4 L clear yellow fluid Fluid sent for diagnostic testing: Not requested Medications: 1% lidocaine for local anaesthesia. Complications: None. IMPRESSION: Successful ultrasound-guided paracentesis. Reviewed by: Bertin Gamboa MD on 04/06/2024 11:52 AM PDT Approved by: Bertin Gamboa MD on 04/06/2024 11:52 AM PDT Station ID: [id number]
== END 2024-04-06 08:18 | disposition home or self-care (01) ==
LOC: DI 08:17
PROVIDERS: ATTEND Internal Medicine Medical Oncology
DX: C25.9 Malignant neoplasm of pancreas, unspecified (principal); R06.02 Shortness of breath; R10.9 Unspecified abdominal pain
CPT/HCPCS: 49083

== ENCOUNTER 2024-04-09 12:20 | Inpatient (IN) ==
--- NOTE | 2024-04-09 12:39 | ED Physician Documentation ---
History of Present Illness - Stated complaint Stated Complaint: SOA,LOW MOBILITY - Chief complaint Chief Complaint: Abd Pain - Additonal information Additional information: Patient 68-year-old female currently undergoing chemotherapy treatment with Dr. Sharp here at [facility] with history of pancreatic adenocarcinoma. Patient presents to the emergency department with elevated heart rate dehydration persistent nausea vomiting shortness of breath and worsening ascites. Patient is getting paracentesis every 10 days most recently was done on 04/06. She presents today with shortness of breath feeling secondary to her ascites as she did not have complete paracentesis percent performed 3 days ago. She denies any abdominal pain. She has been unable to eat or drink due to persistent nausea and vomiting. She has tried at home Zofran with no relief. PD PAST MEDICAL HISTORY - Past Medical History Cardiovascular: Hypertension, Deep vein thrombosis, Other Respiratory: None Neuro: None Endocrine/Autoimmune: None GI: Other PHARMACY STUDENT: None : None HEENT: None Psych: None, Anxiety Musculoskeletal: None Derm: None - Past Surgical History Past Surgical History: Yes Ortho: Other /PHARMACY STUDENT: Hysterectomy HEENT: Cataracts - Present Medications Home Medications: Ambulatory Orders Medication Instructions Recorded Confirmed Metoprolol Tartrate [Lopressor] 100 mg PO BID 02/20/20 04/09/24 Apixaban [Eliquis] 5 mg PO BID #74 tablet 06/25/21 04/09/24 oxyCODONE [Roxicodone] 5 - 10 mg PO Q3H PRN 01/12/22 04/09/24 amLODIPine [Norvasc] 5 mg PO BID 04/27/22 04/09/24 busPIRone [Buspar] 5 - 10 mg PO BID PRN 02/23/24 04/09/24 Lipase/Protease/Amylase [Creon Dr 2 cap PO TIDWM 04/09/24 12,000 Unit Capsule] Prochlorperazine Maleate 10 mg PO Q8H PRN 04/09/24 04/09/24 [Compazine] Senna [Senokot] 17.2 mg PO UD PRN 04/09/24 04/09/24 - Allergies Allergies/Adverse Reactions: Allergies Allergy/AdvReac Type Severity Reaction Status Date / Time cephalexin Allergy Rash Verified 04/09/24 12:26 sulfamethizole Allergy Rash Verified 04/09/24 12:26 - Social History Does the pt smoke?: No Smoking Status: Never smoker Does the pt drink ETOH?: No Does the pt have substance abuse?: No - Immunizations Immunizations are current?: Yes - POLST Patient has POLST: No PD ED PE NORMAL - Vitals Vital signs reviewed: Yes - General General: Alert and oriented X 3 - HEENT HEENT: Other (Significantly dry mucous membranes on examination.) - Neck Neck: No adenopathy - Cardiac Cardiac: RRR, No murmur, No gallop, No rub - Respiratory Respiratory: No respiratory distress, Clear bilaterally - Abdomen Abdomen: Normal bowel sounds, Other (Mild abdominal distention no pain on palpation of abdomen. Positive fluid wave on examination.) - Back Back: No CVA TTP - Derm Derm: Normal color, Warm and dry - Neuro Neuro: Alert and oriented X 3 Eye Opening: Spontaneous Motor: Obeys Commands Verbal: Oriented GCS Score: 15 Results - Vitals Vitals: Vital Signs - 24 hr 04/09/24 04/09/24 04/09/24 12:26 13:01 14:00 Temperature 36.9 C Heart Rate 132 H 119 H 119 H Respiratory 22 23 28 H Rate Blood Pressure 87/61 L 124/68 124/68 O2 Saturation 98 97 95 04/09/24 04/09/24 04/09/24 15:00 15:30 16:00 Temperature Heart Rate 110 H 111 H 109 H Respiratory 18 18 19 Rate Blood Pressure 124/68 124/68 119/66 O2 Saturation 97 96 98 04/09/24 17:00 Temperature Heart Rate 109 H Respiratory 18 Rate Blood Pressure 113/67 O2 Saturation 98 Oxygen O2 Source Room air - EKG (time done) 1338 EKG releavant findings:: EKG personally interpreted by author of this note. Relevant findings are: Rate: Rate (enter#), Garth, Tachy, Other Rhythm: Sinus tachycardia [place]: Normal Intervals: Normal [place] QRS: Normal Ischemia: Normal ST segments Compare to prior EKG: Unchanged from prior EKG Computer interpretation: Agree with computer - Labs Labs: Laboratory Tests 04/09/24 04/09/24 04/09/24 12:30 12:31 12:47 WBC 5.2 RBC 2.67 L Hgb 7.8 L Hct 25.3 L MCV 94.8 MCH 29.2 MCHC 30.8 L RDW 14.8 Plt Count 177 MPV 10.8 Neut # (Auto) Not Reportable Lymph # (Auto) Not Reportable [place] # (Auto) Not Reportable Eos # (Auto) Not Reportable Baso # (Auto) Not Reportable Absolute Nucleated RBC Not Reportable Total Counted 100 Band Neuts % (Manual) 1 Reactive Lymphs % (Man) 3 Abnorm Lymph % (Manual) 0 Myelocytes % 1 H Nucleated RBC % Not Reportable Neutrophils # (Manual) 4.8 Lymphocytes # (Manual) 0.4 L Monocytes # (Manual) 0.0 Eosinophils # (Manual) 0.0 Basophils # (Manual) 0.0 Differential Comment MANUAL DIFFERENTIAL WBC Morphology PELGER HUET ANOMALY RBC Morph Micro Appear 2+ ANISOCYTOSIS Sodium 129 L Potassium 4.9 H Chloride 103 Carbon Dioxide 12 L* Anion Gap 14.0 H BUN 63 H Creatinine 2.0 H Estimated GFR (MDRD) 25 L Glucose 92 Calcium 8.3 L Total Bilirubin 0.9 AST 44 H ALT 28 Alkaline Phosphatase 133 H Troponin I High Sens 13.1 Total Protein 6.3 L Albumin 2.7 L Globulin 3.6 Albumin/Globulin Ratio 0.8 L Lipase 14 Urine Color Urine Clarity Urine pH Ur Specific [place] Urine Protein Urine Glucose (UA) Urine Ketones Urine Occult Blood Urine Nitrite Urine Bilirubin Urine Urobilinogen Ur Leukocyte Esterase Urine RBC Urine WBC Ur Squamous Epith Cells Urine Bacteria Ur Microscopic Review Urine Culture Comments 04/09/24 16:10 WBC RBC Hgb Hct MCV MCH MCHC RDW Plt Count MPV Neut # (Auto) Lymph # (Auto) [place] # (Auto) Eos # (Auto) Baso # (Auto) Absolute Nucleated RBC Total Counted Band Neuts % (Manual) Reactive Lymphs % (Man) Abnorm Lymph % (Manual) Myelocytes % Nucleated RBC % Neutrophils # (Manual) Lymphocytes # (Manual) Monocytes # (Manual) Eosinophils # (Manual) Basophils # (Manual) Differential Comment WBC Morphology RBC Morph Micro Appear Sodium Potassium Chloride Carbon Dioxide Anion Gap BUN Creatinine Estimated GFR (MDRD) Glucose Calcium Total Bilirubin AST ALT Alkaline Phosphatase Troponin I High Sens Total Protein Albumin Globulin Albumin/Globulin Ratio Lipase Urine Color YELLOW Urine Clarity CLOUDY Urine pH 5.0 Ur Specific [place] 1.025 Urine Protein TRACE Urine Glucose (UA) NEGATIVE Urine Ketones NEGATIVE Urine Occult Blood LARGE H Urine Nitrite NEGATIVE Urine Bilirubin SMALL H Urine Urobilinogen 0.2 (NORMAL) Ur Leukocyte Esterase NEGATIVE Urine RBC 6-10 H Urine WBC 0-3 Ur Squamous Epith Cells MOD Squamous H Urine Bacteria Moderate H Ur Microscopic Review INDICATED Urine Culture Comments NOT INDICATED PD Medical Decision Making - ED course Complexity details: reviewed old records, reviewed results ED course: Patient is a 68-year-old female presenting to the emergency department with past medical history of pancreatic adenocarcinoma currently receiving chemotherapy for. Patient notes she is having persistent nausea and vomiting despite taking Zofran at home decreased eating and drinking and worsening abdominal swelling despite having recent paracentesis on 04/06 for recurrent paracentesis secondary to cancer. Patient denies any worsening abdominal pain no hematemesis associate with her symptoms no recent fevers or chills. Vitals on arrival show patient was slightly hypotensive on arrival and significantly tachycardic to the 120s. Repeat blood pressure while patient is at rest shows she is more normotensive at rest. Labs obtained here in the emergency department do show no signs of leukopenia patient hemoglobin shows with significant drop of 2 points to 7.8 from 9.4 4 days ago. Patient denies any black or bloody stools. CMP shows significant dehydration with elevated creatinine at 2.0 which is significantly elevated from patient's baseline of 1.0. Mild decrease in sodium to 129 and mild elevation in potassium to 4.9, no ekg changes. Patient started on fluids, but was held here in The ED after bladder scan did show over 1000 L patient was straight cath and Adler was placed but minimal urine obtained most likely bladder scan was detecting paracentesis. Will DC Adler catheter no signs of UTI as there is contamination with squamous cells and leukocytes. Patient is not leukopenic so will not cover with antibiotics here as she is asymptomatic. Fluids restarted here in emergency department as bicarb returns at 12 and anion gap of 14. Will admit to hospitalist who is agreeable with plan patient taken over by Madison the hospitalist. Departure - Departure Disposition: 66 [facility] DC/Xfer Clinical Impression: Dehydration, High anion gap metabolic acidosis, Nausea and vomiting, Ascites Condition: Poor Discharge Date/Time: 04/09/24 18:45
[2024-04-09 12:54] LABS: BASOPHILS % (AUTO) 2.9 %; HCT - HEMATOCRIT 25.3 % (37.0-47.0); HGB - HEMOGLOBIN 7.8 g/dL (12.0-16.0); LYMPHOCYTES % (AUTO) 5.4 %; MEAN CORPUSCULAR HEMOGLOBIN 29.2 pg (27.0-31.0); MEAN CORPUSCULAR HGB CONC 30.8 g/dL (32.0-36.0); MEAN CORPUSCULAR VOLUME 94.8 fL (81.0-99.0); MEAN PLATELET VOLUME 10.8 fL (7.9-10.8); MONOCYTES % (AUTO) 0.2 %; NEUTROPHILS % (AUTO) 68.3 %; PLT - PLATELET COUNT 177 10^3/uL (130-450); RED BLOOD COUNT 2.67 10^6/uL (4.20-5.40); RED CELL DISTRIBUTION WIDTH 14.8 % (12.0-15.0); WHITE BLOOD COUNT 5.2 x10^3/uL (4.8-10.8)
[2024-04-09 13:03] LABS: ABNORMAL LYMPHS % (MANUAL) 0 %
[2024-04-09 13:31] LABS: BAND NEUTROPHILS % (MANUAL) 1 %; LYMPHOCYTES # (MANUAL) 0.4 10^3/uL (1.5-3.5); LYMPHOCYTES % (MANUAL) 4 %; MYELOCYTES % (MANUAL) 1 %; NEUTROPHILS # (MANUAL) 4.8 10^3/uL (1.5-6.6); RBC MORPHOLOGY (MULTIPLE) 2+ ANISOCYTOSIS (NORMAL); REACTIVE LYMPHS % (MANUAL) 3 %
[2024-04-09 13:32] LABS: DIFFERENTIAL COMMENT MANUAL DIFFERENTIAL; WBC MORPHOLOGY (MULTIPLE) PELGER HUET ANOMALY (NORMAL)
[2024-04-09 14:29] LABS: ALBUMIN 2.7 g/dL (3.2-5.5); ALBUMIN/GLOBULIN RATIO 0.8 (1.0-2.2); BILIRUBIN,TOTAL 0.9 mg/dL (0.2-1.0); CALCIUM 8.3 mg/dL (8.5-10.3); POTASSIUM 4.9 mmol/L (3.5-4.5); TOTAL PROTEIN 6.3 g/dL (6.4-8.9)
[2024-04-09] MEDS: LACTATED RINGERS 1,000 ML IV STA (14:49)
[2024-04-09] MEDS ORDERED: LIDOCAINE 2% URO-JET 5 ML SYRINGE UR ONE (16:00)
[2024-04-09] MEDS: LIDOCAINE 2% URO-JET 5 ML SYRINGE UR STA (16:01)
[2024-04-09 16:38] LABS: BILIRUBIN,URINE SMALL (NEGATIVE); GLUCOSE, URINE (UA) NEGATIVE (NEGATIVE); KETONES,URINE (UA) NEGATIVE (NEGATIVE); LEUKOCYTE ESTERASE, URINE NEGATIVE (NEGATIVE); NITRITE,URINE NEGATIVE (NEGATIVE); OCCULT BLOOD,URINE LARGE (NEGATIVE); PROTEIN,URINE TRACE mg/dL (NEGATIVE); UROBILINOGEN,URINE 0.2 (NORMAL) E.U./dL (NORMAL)
[2024-04-09 16:43] LABS: CLARITY,URINE CLOUDY (CLEAR)
[2024-04-09 16:46] LABS: BACTERIA,URINE Moderate /HPF (None Seen); SQUAMOUS EPITHELIAL CELL,UR MOD Squamous (<= Few); WBC,URINE 0-3 /HPF (0-5)
[2024-04-09] MEDS ORDERED: ONDANSETRON ODT 4 MG TABLET TL PRN (17:33)
[2024-04-09] MEDS ORDERED: MORPHINE 2 MG/ML CARPUJECT IVP PRN (17:33)
[2024-04-09] MEDS ORDERED: oxyCODONE 5 MG TABLET PO PRN (17:33)
[2024-04-09] MEDS ORDERED: SODIUM CHLORIDE FLUSH 0.9% 10 ML SYRINGE IVP PRN (17:33)
[2024-04-09] MEDS ORDERED: ONDANSETRON 4 MG/2 ML VIAL IVP PRN (17:33)
[2024-04-09] MEDS ORDERED: PROCHLORPERAZINE 10 MG/2 ML VIAL IVP PRN (17:56)
[2024-04-09] MEDS ORDERED: PROMETHAZINE INJ 12.5 MG in SODIUM CHLORIDE 0.9% 50 ML IV PRN (17:58)
--- NOTE | 2024-04-09 18:05 | HISTORY & PHYSICAL EXAMINATION ---
Chief Complaint - Chief Complaint Chief Complaint: nausea and vomiting History of Present Illness - Admitted From Admitted From:: ED - History Obtained From Records Reviewed: Palliative Care office visit History obtained from: Patient and her spouse - History of Present Illness HPI Comment/Other: 68-year-old female with a history of pancreatic cancer diagnosed in 2020. She has been undergoing treatment since this time. Recently had a change in her chemotherapy regimen and has become more ill after chemotherapy treatments. She had her last treatment 5 days ago, and for the last 24 hours has been ill at home. She has not been able to tolerate p.o. fluids. She has had loose stools she has had repeated episodes of nausea and vomiting she is not able to keep anything down. She says some antinausea medication at home, only ondansetron and this has not been effective. She has a history of metoprolol hypertension and left lower extremity DVT. She is currently on Eliquis, metoprolol and amlodipine. She came into the emergency department today because she felt that she needed paracentesis. She has some abdominal pain which is no worse than usual it is mainly epigastric and right upper quadrant. There was some question about urinary retention as the bladder scan was positive but they have gotten very little urine out of her Adler. This is likely secondary to her dehydration and lack of urine output combined with her ascites. Her cancer is quite advanced with metastasis to the liver, peritoneal carcinomatosis. 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 - Substance History Use: Uses substance without health or social issues: NONE - POLST Patient has POLST: No POLST Status: Full Code (Brief discussion with patient and her . Her is her surrogate decision maker. She does not have a POLST on file. At this time she would like to remain full code.) Meds/Allgy - Home Medications Home Medications: Ambulatory Orders Medication Instructions Recorded Confirmed Metoprolol Tartrate [Lopressor] 100 mg PO BID 02/20/20 03/29/24 Apixaban [Eliquis] 5 mg PO BID #74 tablet 06/25/21 03/29/24 oxyCODONE [Roxicodone] 5 mg PO PRN PRN 01/12/22 03/29/24 amLODIPine [Norvasc] 5 mg PO BID 04/27/22 03/29/24 busPIRone [Buspar] 5 mg PO BID PRN 02/23/24 03/29/24 Lipase/Protease/Amylase [Creon Dr 2 cap PO TIDWM 04/09/24 12,000 Unit Capsule] Prochlorperazine Maleate 10 mg PO Q8H PRN 04/09/24 04/09/24 [Compazine] Senna [Senokot] 17.2 mg PO UD PRN 04/09/24 04/09/24 - Allergies Allergies/Adverse Reactions: Allergies Allergy/AdvReac Type Severity Reaction Status Date / Time cephalexin Allergy Rash Verified 04/09/24 12:26 sulfamethizole Allergy Rash Verified 04/09/24 12:26 Review of Systems - Constitutional Constitutional: reports: Fatigue, Malaise - Eyes Eyes: denies: Pain, Blurred vision - Ears, Nose & Throat Ears, Nose & Throat: denies: Tinnitus, Vertigo - Cardiovascular Cariovascular: denies: Irregular heart rate, Palpitations, Chest pain - Respiratory Respiratory: reports: SOB with exertion. denies: Wheezing - Gastrointestinal Gastrointestinal: reports: Abdominal pain, Diarrhea, Nausea, Vomiting, Poor appetite. denies: Black stools, Bloody stools, Coffee grounds emesis - Genitourinary Genitourinary: denies: Dysuria - Musculoskeletal Musculoskeletal: denies: Muscle pain - Integumentary Integumentary: denies: Rash - Neurological Neurological: reports: General weakness. denies: Focal weakness, Headache, Dizziness - Psychiatric Psychiatric: denies: Depression Prior Level of Functionality: normally independent in ambulation, but using walker/cane recently due to weakness Exam - Vital Signs Vital Signs: Vital Signs x48h Temp Pulse Resp BP Pulse Ox 04/09/24 17:00 109 H 18 113/67 98 04/09/24 16:00 109 H 19 119/66 98 04/09/24 15:30 111 H 18 124/68 96 04/09/24 15:00 110 H 18 124/68 97 04/09/24 14:00 119 H 28 H 124/68 95 04/09/24 13:01 119 H 23 124/68 97 04/09/24 12:26 36.9 C 132 H 22 87/61 L 98 - Physical Exam General Appearance: positive: No acute distress, Alert Eyes Bilateral: positive: Normal inspection ENT: positive: Dry mucous membranes Neck: positive: Nml inspection Respiratory: positive: Chest non-tender, Other (port site without evidence of infection) Cardiovascular: positive: Tachycardia Peripheral Pulses: positive: 2+ Abdomen: positive: Tenderness (epigastric and RUQ tenderness) Back: positive: Nml inspection Skin: positive: Color nml Neurologic/Psychiatric: positive: Oriented x3 Conclusion/Plan - Problem List (1) Nausea and vomiting Conclusion/Plan: Intractable nausea and vomiting along with diarrhea at home postchemotherapy. Unfortunately with her new chemotherapy regimen this seems to be the case. She has completed week 2 out of 3 treatments before she has a 1 week break. Her nausea and vomiting is not controlled at home with Zofran. She is unable to hold down clear liquids. She is also having loose stools. She has had a Adler placed while in the emergency department has had very little urine output less than 20 cc. (2) Pancreatic carcinoma metastatic to liver Conclusion/Plan: Currently being treated with chemotherapy. She has this diagnosis since 2020. She has been seen by palliative care. She has peritoneal carcinomatosis. She has metastasis to her liver. She is due for her third out of 3 chemo treatments in several days. (3) Acute kidney injury Conclusion/Plan: ] Laboratory Tests 02/19/24 03/16/24 03/28/24 12:55 12:20 13:20 Creatinine 0.9 1.7 H 1.3 04/05/24 04/09/24 12:12 12:31 Creatinine 1.8 H 2.0 H This is likely secondary to her intractable nausea and vomiting which is secondary to her chemotherapy. We will treat her nausea and vomiting with parenteral medications so that she is able to hold down p.o. fluids. We will rehydrate her with IV fluids. Adler was placed in the emergency department she has had very little output since Adler placement. I will repeat her creatinine measurement in the morning. Review of labs shows that creatinine was normal about 6 weeks ago. (4) Dehydration Conclusion/Plan: Secondary to intractable nausea vomiting which is secondary to chemotherapy. She is getting IV and p.o. hydration. Her CBC may show some volume contraction I am concerned that she may require blood transfusion due to delusional effects of fluids. We will assess her for symptomatic anemia as her hydration status improves. Repeat CBC in AM. (5) Anemia Conclusion/Plan: Is likely anemia related to her cancer and cancer treatment. She is not transfuse a bowel at this point. Her hemoglobin is 7.8. She is also dehydrated and I am suspicious that she will need a blood transfusion once her hydration status improves. I have discussed this with her. She consents to blood should she need it Repeat CBC in AM.. (6) Hypertension Conclusion/Plan: Selected Entries 04/09/24 04/09/24 04/09/24 15:30 16:00 17:00 Blood Pressure 124/68 119/66 113/67 Blood Pressure [Left Brachial artery] 04/09/24 04/09/24 18:00 18:23 Blood Pressure 117/90 H Blood Pressure 114/65 [Left Brachial artery] Normotensive today. I will hold her outpatient metoprolol and amlodipine. She denies any history of atrial fibrillation. - Lab Results Fish Bones: 04/09/24 12:47 04/09/24 12:31 Core Measures - Anticipated LOS I expect patient to be DC'd or transferred within 96 hours.: Yes - DVT/VTE - Prophylaxis VTE/DVT Device ordered at admit?: Yes VTE/DVT Prophylaxis med ordered at admit?: Yes
[2024-04-09] MEDS ORDERED: LOPERAMIDE 2 MG CAPSULE PO PRN (18:12)
[2024-04-09 18:26] VITALS: BP 114/65; O2SAT 97
[2024-04-09] MEDS: SODIUM CHLORIDE 0.9% 1,000 ML IV SCH (18:30)
--- NOTE | 2024-04-09 18:31 | XRAY Report ---
PROCEDURE: Chest 1V INDICATIONS: weak, on chemo, neutropenic TECHNIQUE: One view of the chest was acquired. COMPARISON: CT abdomen and pelvis with contrast 02/17/2024 FINDINGS: Surgical changes and devices: Right Port-A-Cath distal tip at the cavoatrial junction Lungs and pleura: Low lung volumes. Bibasilar subsegmental atelectasis. No focal lung consolidation. No pleural effusion. Mediastinum: Mediastinal contours appear normal. Heart size is normal. Bones and chest wall: No suspicious bony lesions. Overlying soft tissues appear unremarkable. IMPRESSION: Bibasilar subsegmental atelectasis. Otherwise, no acute cardiothoracic process. Reviewed by: Trav Leslie MD on 04/09/2024 6:29 PM PDT Approved by: Trav Leslie MD on 04/09/2024 6:29 PM PDT Station ID: [id number]
--- NOTE | 2024-04-09 18:37 | PHARMACY PROGRESS NOTE ---
- Best Possible Medication History Admit Date and Time: 04/09/24 9613 Processed by: Pharmacy (Medication reconciliation completed by Crystal InspectorElizabeth) Medications reviewed in ED?: No Medication History completed: Yes Patient Interview: Completed Secondary Source(s): Physician records, Insurance records (unable to confirm pancrelipase at home with patient or insurance records) As the person ultimately responsible for medication therapy, providers are able to order a medication from an existing home medication list in [facility] via the "Reconcile Routine" prior to Confirmation of that medication by support team assoc. Such practice is discouraged except when the physician, in their clinical judgment, deems that a medical need exists for a medication without regard to previous use.
[2024-04-09] MEDS ORDERED: busPIRone 5 MG TABLET PO PRN (18:41)
[2024-04-09] MEDS: APIXABAN 5 MG TABLET PO SCH (20:38)
[2024-04-10] MEDS ORDERED: SODIUM CHLORIDE FLUSH 0.9% 10 ML SYRINGE IVP SCH (01:00)
[2024-04-10] MEDS ORDERED: SODIUM CHLORIDE 0.9% 1,000 ML ONE (06:55)
--- NOTE | 2024-04-10 16:31 | Discharge Summary ---
"Discharge Summary Admit Date: 04/09/24 Discharge Date: 04/10/24 Discharging Provider: Sukhjinder Sullivan NP Primary Care Provider: Amelie Akers Code Status: Attempt Resuscitation DIAGNOSES Admission Diagnoses: Nausea and vomiting Malignant neoplasm of pancreas metastatic to liver Acute kidney injury Dehydration Anemia Hypertension Discharge Diagnoses with Status of Each Condition: Nausea and vomitingongoing, improved Malignant neoplasm of pancreas metastatic to liverchronic Acute kidney injuryresolved Dehydrationresolved Anemiachronic Hypertensionchronic HPI History of Present Illness: 68-year-old female with history of pancreatic cancer diagnosed in 2020 who is undergoing treatment. She had her last treatment 5 days prior to admission. For the 24 hours preceding presentation to the ER, she was unable to tolerate p.o. fluids and had nausea, vomiting, diarrhea uncontrolled with her home regimen of ondansetron Of note, she gets therapeutic/palliative paracenteses regularly. She underwent paracentesis on 04/06/2024 but they were not able to get anything out. She has abdominal bloating, and said she needs another paracentesis for this admit In the ER, she was noted to be very dehydrated, and found to have OJSH which is why she was admitted CONSULTS | PROCEDURES Procedures: Palliative/therapeutic paracentesis 04/10/2024 HOSPITAL COURSE Hospital Course: She was admitted for aggressive IV fluid resuscitation. Overnight her hemoglobin dropped below 7, so she received 1 unit packed red blood cell. I believe this anemia was of chronic origin secondary to her cancer treatments exacerbated by a delutional effect from the IV fluids. Repeat BMP showed improvement, and hemoglobin susan to greater than 8 after transfusion ALLERGIES Allergies Allergy/AdvReac Type Severity Reaction Status Date / Time cephalexin Allergy Rash Verified 04/09/24 12:26 sulfamethizole Allergy Rash Verified 04/09/24 12:26 MEDICATIONS Ambulatory Orders Medication Instructions Recorded Confirmed metoprolol tartrate 100 mg tablet 100 mg PO BID 02/20/20 04/09/24 (Lopressor) apixaban 5 mg tablet (Eliquis) 5 mg PO BID #74 tabs 06/25/21 04/09/24 oxycodone 5 mg tablet 5 - 10 mg PO Q3H PRN Pain 01/12/22 04/09/24 amlodipine 5 mg tablet 5 mg PO BID 04/27/22 04/09/24 buspirone 5 mg tablet 5 - 10 mg PO BID PRN Anxiety 02/23/24 04/09/24 [id number] 2 cap PO TIDWM 04/09/24 12,000-38,000-60,000 unit capsule,delayed rel (Creon) prochlorperazine maleate 10 mg 10 mg PO Q8H PRN Nausea / Vomiting 04/09/24 04/09/24 tablet (Compazine) sennosides 8.6 mg tablet (Senna 17.2 mg PO UD PRN Constipation 04/09/24 04/09/24 Lax) PHYSICAL EXAM AT DISCHARGE General Appearance: positive No acute distress Respiratory: positive Chest non-tender Cardiovascular: positive Regular rate & rhythm Peripheral Pulses: positive 2+ Abdomen: positive Tenderness and Other (Distended abdomen) Skin: positive Pallor (Resolved after blood transfusion) Extremities: positive Non-tender and No pedal edema Neurologic/Psychiatric: positive Oriented x3 LABS 04/09/24 12:47 04/09/24 12:31 SEPSIS Current Stage of Sepsis: Ruled out FOLLOW UP Follow Up: With palliative care team, hematology/oncology, PCP TIME SPENT Time Spent in Discharge (Minutes): 35 Discharge Plan Discharge Patient Disposition: 01 Home, Self Care Condition: Poor Medically Cleared Date:: 04/10/24 Prescriptions: Continued metoprolol tartrate [Lopressor] 100 MG tablet 100 mg PO BID Eliquis 5 MG tablet 5 mg PO BID Qty: 74 0RF oxycodone 5 MG tablet 5 - 10 mg PO Q3H PRN (Reason: Pain) amlodipine 5 MG tablet 5 mg PO BID buspirone 5 MG tablet 5 - 10 mg PO BID PRN (Reason: Anxiety) sennosides [Senna Lax] 8.6 MG tablet 17.2 mg PO UD PRN (Reason: Constipation) Rx Instructions: Take two tabs twice a day; titrate up for daily BM Creon 1 EACH capsule,delayed release(DR/EC) 2 cap PO TIDWM prochlorperazine maleate [Compazine] 10 MG tablet 10 mg PO Q8H PRN (Reason: Nausea / Vomiting) Patient Comments: Take 1 tablet by mouth every eight hours for nausea Activity Restrictions: No Restrictions Diet: Regular Health Concerns: You are a 68-year-old female undergoing treatment for pancreatic cancer. You came in after having nausea, vomiting, diarrhea and were found to have a acute kidney injury likely secondary to dehydration. You were given aggressive IV fluid resuscitation, and did receive a unit of packed red blood cells for your anemia Care Plan Goals: I would encourage you to try and have the best nutrition possible. I would encourage you to keep up with your nausea regimen and consider [id number] antidiarrheals. If you have any trouble with such I would encourage you to reach out to the palliative care team as they would be able to address your concerns the quickest. Plan of Treatment: I would encourage you to drink plenty of water, and supplement this with Gatorade, juice. I would like for you to follow-up with at least your oncologist and your police specialist as well as your primary care physician. Patient Instructions: Dehydration Rehydration Ch Stand Alone Forms: PCP List Follow-up Care: Amelie Akers PA-C [Primary Care Provider] -"
[2024-04-10 18:14] LABS: BASOPHILS % (AUTO) 0.4 %; EOSINOPHILS % (AUTO) 0.4 %; HCT - HEMATOCRIT 20.7 % (37.0-47.0); LYMPHOCYTES # (AUTO) 0.3 10^3/uL (1.5-3.5); LYMPHOCYTES % (AUTO) 11.1 %; MEAN CORPUSCULAR VOLUME 96.7 fL (81.0-99.0); MEAN PLATELET VOLUME 10.6 fL (7.9-10.8); MONOCYTES % (AUTO) 0.4 %; NEUTROPHILS % (AUTO) 41.8 %; PLT - PLATELET COUNT 122 10^3/uL (130-450); RED BLOOD COUNT 2.14 10^6/uL (4.20-5.40); RED CELL DISTRIBUTION WIDTH 14.9 % (12.0-15.0); WHITE BLOOD COUNT 2.4 x10^3/uL (4.8-10.8)
[2024-04-10 19:07] LABS: CALCIUM 7.5 mg/dL (8.5-10.3); CREATININE 1.5 mg/dL (0.6-1.3); MAGNESIUM 1.8 mg/dL (1.7-2.3); PHOSPHORUS 4.9 mg/dL (2.5-5.0); POTASSIUM 4.6 mmol/L (3.5-4.5)
[2024-04-10 19:26] LABS: CALCIUM 7.7 mg/dL (8.5-10.3); CREATININE 1.3 mg/dL (0.6-1.3); POTASSIUM 5.1 mmol/L (3.5-4.5)
[2024-04-10 19:34] LABS: HGB - HEMOGLOBIN 6.2 g/dL (12.0-16.0)
[2024-04-10 19:37] LABS: PARTIAL THROMBOPLASTIN TIME 30.8 secs (24.9-33.3); PT - PROTHROMBIN TIME 21.1 secs (9.9-12.6)
[2024-04-10 19:48] LABS: BASOPHILS # (AUTO) 0.1 10^3/uL (0.0-0.1); BASOPHILS % (AUTO) 2.4 %; EOSINOPHILS % (AUTO) 0.5 %; HCT - HEMATOCRIT 26.2 % (37.0-47.0); LYMPHOCYTES # (AUTO) 0.3 10^3/uL (1.5-3.5); LYMPHOCYTES % (AUTO) 14.3 %; MEAN CORPUSCULAR HEMOGLOBIN 29.1 pg (27.0-31.0); MEAN CORPUSCULAR HGB CONC 30.5 g/dL (32.0-36.0); MEAN CORPUSCULAR VOLUME 95.3 fL (81.0-99.0); MONOCYTES % (AUTO) 0.5 %; NEUTROPHILS # (AUTO) 1.7 10^3/uL (1.5-6.6); NEUTROPHILS % (AUTO) 81.3 %; PLT - PLATELET COUNT 110 10^3/uL (130-450); RED BLOOD COUNT 2.75 10^6/uL (4.20-5.40); RED CELL DISTRIBUTION WIDTH 14.8 % (12.0-15.0); WHITE BLOOD COUNT 2.1 x10^3/uL (4.8-10.8)
[2024-04-10 19:53] LABS: PLATELET ESTIMATE, MANUAL DECREASED (<130,000) (NORMAL); PLATELET MORPHOLOGY NORMAL APPEARANCE (NORMAL); RBC MORPHOLOGY (MULTIPLE) 2+ ANISOCYTOSIS (NORMAL)
--- NOTE | 2024-04-12 10:15 | Ultrasound Report ---
PROCEDURE: US Abdominal Paracentesis INDICATIONS: PANCREATIC CA - PARACENTESIS TECHNIQUE: The indications, alternatives, benefits, risks, and complications of the procedure were explained to the patient. Written informed consent was obtained and placed in the chart. The abdomen and pelvis were examined sonographically, and an appropriate site was chosen for paracentesis. The skin was pre pared and draped in the usual sterile fashion, and 1% lidocaine was infiltrated from the skin down th rough the peritoneal surface. A 19-gauge catheter-covered needle was then introduced into the perito gayb space, the catheter was advanced and the needle was withdrawn, and thereafter peritoneal fluid w as withdrawn. The catheter was then removed and a dressing was applied. The fluid was discarded if the clinician did not order diagnostic testing of the fluid. COMPARISON: 04/06/2024 FINDINGS: Access site: Right lower quadrant Needle: One-Step centesis catheter with introducer needle. Fluid volume and description: 5.1 L, clear Fluid sent for diagnostic testing: No Medications: 1% lidocaine for local anaesthesia. Complications: None. IMPRESSION: Successful ultrasound-guided paracentesis. Reviewed by: Jacques Ying MD on 04/12/2024 10:14 AM PDT Approved by: Jacques Ying MD on 04/12/2024 10:14 AM PDT Station ID: [id number]
== END 2024-04-10 17:15 | disposition home or self-care (01) ==
LOC: ED 12:20 → MS2 17:33
PROVIDERS: ADMIT Physician Assistant Medical; ATTEND Specialist